=== PATIENT | female | born 1955 | race Caucasian/White ===

== ENCOUNTER 2020-12-26 12:11 | Inpatient (IN) | payer MEDICARE, BC, SELFPAY ==
[2020-12-26 12:20] VITALS: BP 153/81; PULSE 67; RESP 18; TEMP 36.7; O2SAT 99; BMI 31.8
[2020-12-26 12:47] LABS: Add Manual Diff / Slide Review NO; Basophils Absolute Auto 100 /uL (0-100); Basophils Percent Auto 0.7 % (0-2); Eosinophils Absolute Auto 100 /uL (0-450); Eosinophils Percent Auto 0.9 % (2-4); Hematocrit 39.3 % (36-46); Hemoglobin 13.1 g/dL (12.0-16.0); Lymphocytes Absolute Auto 3100 /uL (1100-4500); Lymphocytes Percent Auto 21.2 % (25-40); Mean Corpuscular HGB Conc 33.3 % (30-36); Mean Corpuscular Hemoglobin 29.1 PG (26-34); Mean Corpuscular Volume 87.4 fL (80-100); Monocytes Absolute Auto 1200 /uL (0-900); Monocytes Percent Auto 8.4 % (3-14); Neutrophils Absolute Auto 10000 /uL (1500-7000); Neutrophils Percent Auto 68.8 % (50-75); Platelet Count 189 X10^3/uL (150-400); Red Cell Distribution Width 14.1 % (11.6-14.8); White Blood Cell Count 14.6 X10^3/uL (4.5-11.0)
[2020-12-26 12:53] LABS: INR 1.3 (0.9-1.3); Prothrombin Time 14.9 SECONDS (10.1-12.7)
[2020-12-26 12:56] LABS: PTT Partial Thromboplastin Tim 31 SECONDS (26.4-36.2)
[2020-12-26 13:00] LABS: Alanine Aminotransferase 21 IU/L (<35); Albumin Globulin Ratio 1.2 (1.0-2.8); Alkaline Phosphatase 71 U/L (38-126); Aspartate Aminotransferase 23 IU/L (14-36); BUN Creatinine Ratio 18.7 (6-22); Bilirubin Total 0.4 mg/dL (0.2-1.3); Blood Urea Nitrogen 14 mg/dL (7-17); Calcium 9.7 mg/dL (8.4-10.2); Carbon Dioxide 29 mmol/L (22-32); Chloride 105 mmol/L (98-107); Estimated Glomerular Filt Rate > 60.0 mL/min (>60); Globulin 3.4 g/dL (1.7-4.1); Glucose 103 mg/dL (80-110); HEMOLYSIS < 15 (0-50); Lipase 47 U/L (23-300); Potassium 3.7 mmol/L (3.4-5.1); Sodium 142 mmol/L (137-145); Total Protein 7.4 g/dL (6.3-8.2)
[2020-12-26 14:14] VITALS: BP 103/78; PULSE 66; RESP 16; TEMP 36.9; O2SAT 98
--- NOTE | 2020-12-26 14:27 | ED.ABDPAIN ---
HPI - Abdominal Pain General Chief Complaint: Abdominal Pain Stated Complaint: states, abdominal pain,tired,head ache, feverish Time Seen by Provider: 12/26/20 14:25 Source: patient Mode of arrival: Ambulatory Limitations: no limitations History of Present Illness HPI narrative: Patient is a 65-year-old female who presents with abdominal pain ongoing for the last 2-3 days. She has had night sweats last night she said she felt cold and then sweaty. She has been having diffuse sort of abdominal pain off and on. No nausea or vomiting. She has had decrease in appetite. She has had low back pain which is nonradiating to her legs her abdomen she states her back pain is from all lying down too much. She denies any chest pain palpitations or shortness of breath. No painful or frequent urination. MD complaint: abdominal pain Onset (ago): day(s) (2) Quality: cramping Radiation: none Related Data Home Medications Medication Instructions Recorded Confirmed alprazolam 0.5 mg PO BEDTIME 12/26/20 12/26/20 bupropion HCl 150 mg PO DAILY 12/26/20 12/26/20 trazodone 50 mg PO BEDTIME 12/26/20 12/26/20 triamterene-hydrochlorothiazid 1 cap DAILY 12/26/20 12/26/20 Allergies Allergy/AdvReac Type Severity Reaction Status Date / Time No Known Drug Allergies Allergy Verified 12/26/20 12:23 Review of Systems Review of Systems ROS Unobtainable: All systems reviewed & are unremarkable except as noted in HPI and below Constitutional Constitutional: Reports body ache(s), Reports chills, Reports fever(s) and Reports poor appetite ENT Ears, Nose, Mouth, and Throat: Denies change in voice, Denies vertigo, Denies dizziness, Denies neck pain and Denies sore throat Cardiovascular Cardiovascular: Denies chest pain, Denies irregular heart rhythm, Denies lightheadedness, Denies palpitations, Denies dyspnea, Denies dyspnea on exertion and Denies orthopnea Respiratory Respiratory: Denies cough, Denies dyspnea, Denies dyspnea on exertion and Denies wheezing Gastrointestinal Gastrointestinal: Reports abdominal pain, Denies change in bowel habits, Denies diarrhea, Denies nausea and Denies vomiting Musculoskeletal Musculoskeletal: Reports as per HPI, Reports back pain, Denies deformity, Denies neck pain and Denies numbness Integumentary/Breasts Skin/Breast: Denies pruritus, Denies erythema, Denies rash and Denies wounds Neurologic Neurologic: Denies vertigo, Denies dizziness and Denies numbness Endocrine Endocrine: Denies palpitations Allergic/Immunologic Allergic/Immunologic: Denies wheezing Patient History Medical History (Updated 12/26/20 @ 16:56 by Brigette De Oliveira DO) Patient denies medical problems Social History household members: spouse Smoking Status: Never smoker Smoking Status: Never smoker alcohol intake frequency: 0-2 drinks per day Substance Use Type: does not use Exam Initial Vital Signs Initial Vital Signs: Vital Signs Temperature 98.1 F 12/26/20 12:20 Pulse Rate 67 12/26/20 12:20 Respiratory Rate 18 12/26/20 12:20 Blood Pressure 153/81 H 12/26/20 12:20 Pulse Oximetry 99 12/26/20 12:20 GENERAL: Well-appearing, well-nourished and in no acute distress. HEENT: Head atraumatic,EOMI, pupils reactive, face symmetric, moist mucous membranes CARDIOVASCULAR: Regular rate and rhythm without murmurs, rubs or gallops. RESPIRATORY: Breath sounds equal bilaterally, no wheezes rales or rhonchi. ABDOMEN: Sof, tender left upper quadrant no guarding no rebound minimal lower abdominal tenderness EXTREMITIES: Normal range of motion, no clubbing or edema. Neurovascularly intact NEUROLOGICAL: Alert and oriented x4.Normal gait and speech. SKIN: Warm, dry, no laceration, no petechiae, no rashes or lesions. Course Orders Ordered: ED Orders 12/26/20 12:24 EKG-12 Lead Stat 12/26/20 12:30 Complete Blood Count AUTO DIFF Stat Comprehensive Metabolic Panel Stat Lactate (Lactic Acid) Stat Lipase Stat Partial Thromboplastin Time Stat Prothrombin Time INR Stat 12/26/20 14:33 CT abdomen pelvis w con Stat 12/26/20 16:40 Urine Microscopic Stat 12/26/20 16:57 COVID19 - ADMIT ([employer] swab/PCR) Stat Piperacillin/Tazobactam/Dextrose (Zosyn) 3.375 gm in 50 mls @ 100 mls/hr IV Q6H MARANDA Potassium Chloride/Sodium Chloride (Ns With Kcl 20 Meq) 1,000 mls @ 150 mls/hr IV CONT MARANDA Morphine Sulfate (Morphine 2 Mg/Ml Inj) 1 mg IV Q4HR PRN PRN Reason: Pain, Moderate (4-6) Morphine Sulfate (Morphine 2 Mg/Ml Inj) 2 mg IV Q4HR PRN PRN Reason: Pain, Severe (7-10) Naloxone HCl (Naloxone 0.4 Mg/Ml Vial) 0.2 mg IV Q2MIN PRN PRN Reason: Opiate Reversal Ondansetron HCl (Ondansetron 4 Mg/2 Ml Inj) 4 mg IV Q4HR PRN PRN Reason: Nausea And Vomiting Discontinued Medications Sodium Chloride (Normal Saline 0.9%) 1,000 mls @ 1,000 mls/hr IV BOLUS ONE Stop: 12/26/20 15:32 Last Infusion: 12/26/20 17:37 Dose: 0 mls/hr Documented by: Infusion: 12/26/20 15:00 Dose: 1,000 mls/hr Documented by: Infusion: 12/26/20 14:43 Dose: 0 mls/hr Documented by: Admin: 12/26/20 14:43 Dose: 1,000 mls/hr Documented by: BEKA Piperacillin/Tazobactam/Dextrose (Zosyn) 3.375 gm in 50 mls @ 100 mls/hr IV NOW ONE Stop: 12/26/20 17:18 Last Infusion: 12/26/20 17:37 Dose: 0 mls/hr Documented by: Admin: 12/26/20 17:08 Dose: 100 mls/hr Documented by: BEKA Vital Signs Vital signs: Vital Signs - 8 hr 12/26/20 12:20 12/26/20 14:14 Temperature 98.1 F 98.4 F Pulse Rate 67 66 Respiratory Rate 18 16 Blood Pressure 153/81 H 103/78 Pulse Oximetry 99 98 MDM - Abdominal Pain Lab Data Attestation: I reviewed the patient's lab results. Result diagrams: 12/26/20 12:30 12/26/20 12:30 Labs: Lab Results 12/26/20 12/26/20 12/26/20 Range/Units 12:30 12:30 12:30 WBC 14.6 H (4.5-11.0) X10^3/uL RBC 4.50 (4.0-5.2) X10^6/uL Hgb 13.1 (12.0-16.0) g/dL Hct 39.3 (36-46) % MCV 87.4 (80-100) fL MCH 29.1 (26-34) PG MCHC 33.3 (30-36) % RDW 14.1 (11.6-14.8) % Plt Count 189 (150-400) X10^3/uL Neut % (Auto) 68.8 (50-75) % Lymph % (Auto) 21.2 L (25-40) % [place] % (Auto) 8.4 (3-14) % Eos % (Auto) 0.9 L (2-4) % Baso % (Auto) 0.7 (0-2) % Neut # (Auto) 78973 H (7427-0223) /uL Lymph # (Auto) 3100 (1382-9508) /uL [place] # (Auto) 1200 H (0-900) /uL Eos # (Auto) 100 (0-450) /uL Baso # (Auto) 100 (0-100) /uL PT 14.9 H (10.1-12.7) SECONDS INR 1.3 (0.9-1.3) APTT 31 (26.4-36.2) SECONDS Sodium 142 (137-145) mmol/L Potassium 3.7 (3.4-5.1) mmol/L Chloride 105 (98-107) mmol/L Carbon Dioxide 29 (22-32) mmol/L BUN 14 (7-17) mg/dL Creatinine 0.75 (0.52-1.04) mg/dL Estimated GFR > 60.0 (>60) mL/min BUN/Creatinine Ratio 18.7 (6-22) Glucose 103 (80-110) mg/dL Lactate (0.7-2.1) mmol/L Calcium 9.7 (8.4-10.2) mg/dL Total Bilirubin 0.4 (0.2-1.3) mg/dL AST 23 (14-36) IU/L ALT 21 (<35) IU/L Alkaline Phosphatase 71 (38-126) U/L Total Protein 7.4 (6.3-8.2) g/dL Albumin 4.0 (3.5-5.0) g/dL Globulin 3.4 (1.7-4.1) g/dL Albumin/Globulin Ratio 1.2 (1.0-2.8) Lipase 47 (23-300) U/L Urine RBC (0-5/HPF) Urine WBC (0-5/HPF) Ur Squamous Epith Cells (0-5/HPF) Urine Bacteria (None) Ur Culture Indicated? SARS-CoV-2 (PCR) (Negative) 12/26/20 12/26/20 12/26/20 Range/Units 12:30 16:40 16:57 WBC (4.5-11.0) X10^3/uL RBC (4.0-5.2) X10^6/uL Hgb (12.0-16.0) g/dL Hct (36-46) % MCV (80-100) fL MCH (26-34) PG MCHC (30-36) % RDW (11.6-14.8) % Plt Count (150-400) X10^3/uL Neut % (Auto) (50-75) % Lymph % (Auto) (25-40) % [place] % (Auto) (3-14) % Eos % (Auto) (2-4) % Baso % (Auto) (0-2) % Neut # (Auto) (7373-0823) /uL Lymph # (Auto) (3644-5676) /uL [place] # (Auto) (0-900) /uL Eos # (Auto) (0-450) /uL Baso # (Auto) (0-100) /uL PT (10.1-12.7) SECONDS INR (0.9-1.3) APTT (26.4-36.2) SECONDS Sodium (137-145) mmol/L Potassium (3.4-5.1) mmol/L Chloride (98-107) mmol/L Carbon Dioxide (22-32) mmol/L BUN (7-17) mg/dL Creatinine (0.52-1.04) mg/dL Estimated GFR (>60) mL/min BUN/Creatinine Ratio (6-22) Glucose (80-110) mg/dL Lactate 0.7 (0.7-2.1) mmol/L Calcium (8.4-10.2) mg/dL Total Bilirubin (0.2-1.3) mg/dL AST (14-36) IU/L ALT (<35) IU/L Alkaline Phosphatase (38-126) U/L Total Protein (6.3-8.2) g/dL Albumin (3.5-5.0) g/dL Globulin (1.7-4.1) g/dL Albumin/Globulin Ratio (1.0-2.8) Lipase (23-300) U/L Urine RBC 1-5/hpf (0-5/HPF) Urine WBC None seen (0-5/HPF) Ur Squamous Epith Cells 0-1 /hpf (0-5/HPF) Urine Bacteria None seen (None) Ur Culture Indicated? Cult not indicated SARS-CoV-2 (PCR) Negative (Negative) Point of care testing: Urine Dip Bedside Urine Glucose Negative Bedside Urine Bilirubin - Negative Bedside Urine Ketone + 15 Urine Specific [place] 1.005 Bedside Urine Occult Blood + Bedside Urine pH 6.0 Bedside Urine Protein - Negative Bedside Urine Urobilinogen - Negative Bedside Urine Nitrite - Negative Bedside Urine Leukocytes - Negative Esterase Imaging Data CT scan - abdomen/pelvis: Radiologist's Impression: PROCEDURE: CT ABDOMEN PELVIS W CON INDICATIONS: LUQ pain TECHNIQUE: After the administration of intravenous contrast, 5 mm thick sections acquired from the diaphragm to the symphysis. 5 mm coronal and sagittal reformats were acquired. For radiation dose reduction, the following was used: automated exposure control, adjustment of mA and/or kV according to patient size. COMPARISON: None. FINDINGS: Image quality: Excellent. ABDOMEN: Lung bases: Lung bases are clear. Heart size is normal. Solid organs: Liver is normal in size and enhancement. Gallbladder is unremarkable. Biliary system is non dilated. Pancreas enhances normally. Spleen is normal in size and enhancement. No adrenal nodules. Kidneys demonstrate normal size and enhancement, without hydronephrosis. Peritoneum and bowel: Markedly abnormal segment of transverse colon with marked wall thickening and edema. There is a prominent diverticulum within this involved segment. There is associated inflammatory change in the surrounding fat. This is in close proximity wall to a small enhancing pericolonic lymph node. Normal appendix. The colon is otherwise unremarkable, other than scattered diverticuli. Small pelvic ascites. No abscess cavity. Nodes and vessels: No retroperitoneal or mesenteric adenopathy by size criteria. Aorta and inferior vena cava are normal in size. Miscellaneous: No ventral hernias. PELVIS: Genitourinary: Bladder wall thickness is normal. Miscellaneous: No inguinal hernias or adenopathy. Large calcified uterine fibroid measuring 4.3 cm. Bones: No suspicious bony lesions. No vertebral body compression fractures. Bilateral L5 pars defects with mild anterolisthesis of L5 on S1 and significant bilateral foraminal narrowing. IMPRESSION: 1. Short segment of markedly abnormal transverse colon with marked wall thickening and wall edema, in the presence of a prominent diverticulum, with inflammatory change in the adjacent fat. Differential diagnosis includes acute diverticulitis of the transverse colon. Differential diagnosis also includes an ischemic bowel segment secondary to embolic phenomenon. Differential also includes perforated transverse colonic adenocarcinoma. 2. Scattered colonic diverticulosis. 3. Small pelvic ascites. 4. Large calcified uterine fibroid. 5. Bilateral L5 pars defects, mild anterolisthesis of L5 on S1, severe bilateral L5-S1 foraminal narrowing. Dictated by: David Fernandez M.D. on 12/26/2020 at 15:12 Approved by: David Fernandez M.D. on 12/26/2020 at 15:20 ECG Data Attestation: I personally reviewed and interpreted this ECG as follows: Prior ECG tracings: not available for review Interpretation: Normal sinus rhythm rate 65 p.r. interval 192 QRS [address] changes Q-wave noted in 1-3 AVF MDM Narrative Medical decision making narrative: Patient is quite tender in her left upper quadrant. She has leukocytosis and likely had a fever last night. CT does show inflammation questionable ischemic bowel and perforation. 1640-surgery Dr. Hobson updated on patient's symptoms and test results at this time recommends admitting to Medicine with IV antibiotics and close monitoring. 1650 Dr. ugarte updated patient's symptoms test results and agrees with admission Discharge Plan Departure Patient Disposition: Admitted As Inpatient Clinical Impression: Colitis Admit Date/Time: 12/26/20 17:01 Admit Provider: Jose Ugarte
--- NOTE | 2020-12-26 14:33 | DI.CT.S_ITS ---
PROCEDURE: CT ABDOMEN PELVIS W CON INDICATIONS: LUQ pain TECHNIQUE: After the administration of intravenous contrast, 5 mm thick sections acquired from the diaphragm to the symphysis. 5 mm coronal and sagittal reformats were acquired. For radiation dose reduction, the following was used: automated exposure control, adjustment of mA and/or kV according to patient size. COMPARISON: None. FINDINGS: Image quality: Excellent. ABDOMEN: Lung bases: Lung bases are clear. Heart size is normal. Solid organs: Liver is normal in size and enhancement. Gallbladder is unremarkable. Biliary system is non dilated. Pancreas enhances normally. Spleen is normal in size and enhancement. No adrenal nodules. Kidneys demonstrate normal size and enhancement, without hydronephrosis. Peritoneum and bowel: Markedly abnormal segment of transverse colon with marked wall thickening and edema. There is a prominent diverticulum within this involved segment. There is associated inflammatory change in the surrounding fat. This is in close proximity wall to a small enhancing pericolonic lymph node. Normal appendix. The colon is otherwise unremarkable, other than scattered diverticuli. Small pelvic ascites. No abscess cavity. Nodes and vessels: No retroperitoneal or mesenteric adenopathy by size criteria. Aorta and inferior vena cava are normal in size. Miscellaneous: No ventral hernias. PELVIS: Genitourinary: Bladder wall thickness is normal. Miscellaneous: No inguinal hernias or adenopathy. Large calcified uterine fibroid measuring 4.3 cm. Bones: No suspicious bony lesions. No vertebral body compression fractures. Bilateral L5 pars defects with mild anterolisthesis of L5 on S1 and significant bilateral foraminal narrowing. IMPRESSION: 1. Short segment of markedly abnormal transverse colon with marked wall thickening and wall edema, in the presence of a prominent diverticulum, with inflammatory change in the adjacent fat. Differential diagnosis includes acute diverticulitis of the transverse colon. Differential diagnosis also includes an ischemic bowel segment secondary to embolic phenomenon. Differential also includes perforated transverse colonic adenocarcinoma. 2. Scattered colonic diverticulosis. 3. Small pelvic ascites. 4. Large calcified uterine fibroid. 5. Bilateral L5 pars defects, mild anterolisthesis of L5 on S1, severe bilateral L5-S1 foraminal narrowing. Dictated by: David Fernandez M.D. on 12/26/2020 at 15:12 Approved by: David Fernandez M.D. on 12/26/2020 at 15:20
[2020-12-26] MEDS: SODIUM CHLORIDE 0.9% 1,000 ML 1000 ML IV (14:43)
[2020-12-26 16:59] LABS: Bacteria Urine None Seen; WBC Urine None Seen (0-5/HPF)
[2020-12-26] MEDS: PIPERACILLIN-TAZO 3.375 GM/50 ML FROZ.PIGGY IV ×2 (17:08→22:39)
[2020-12-26 17:09] LABS: Lactate (Lactic Acid) 0.7 mmol/L (0.7-2.1)
[2020-12-26 17:11] VITALS: BP 161/85; PULSE 74; O2SAT 99
[2020-12-26 17:20] LABS: Culture Indicated Urine Cult Not Indicated; RBC Urine 1-5/HPF (0-5/HPF); Squamous Epithelial Cell Urine 0-1 /HPF (0-5/HPF)
[2020-12-26 17:47] VITALS: BMI 31.8
--- NOTE | 2020-12-26 17:52 | PC.NURSE ---
Addendum entered by Mellissa Bryan R.N. 12/26/20 21:04: Pt reports no change in abdominal pain. States is comfortable when lying still in bed, but movement, coughing, increases pain to left mid and lower abdominal quadrants. Remains NPO except oral swabs as per JENNIFER Javier. Addendum entered by Mellissa Bryan R.N. 12/26/20 20:42: Hospitalist JENNIFER Javier has seen patient. Addendum entered by Mellissa Bryan R.N. 12/26/20 18:44: Up to bathroom to void. Independent and safe on feet. BL calf scd's placed as ordered with rationale provided to pt. Offered pt morphine for pain and pt adamantly declines, Not unless I have surgery. Addendum entered by Mellissa Bryan R.N. 12/26/20 18:07: Pt is able to turn self in bed. Admits to increase in left-sided abdominal pain with turning to left side and reports no increase in pain with turning to right side. Continues to rate left-sided abdominal pain 4/10, dull in nature when lying on back which pt reports prefers this position. Original Note: Pt to room 222 from [facility] awake, alert, conversant. Reports left mid and lower quadrant abdominal pain 4/10 dull in nature. Pt denies nausea. Spouse accompanies pt to room. Awaiting covid result and pt with mask in place. Float RNSelina, completing admission assessment. Pt assisted to change into hospital gown and socks. Raised knees with pillow and with bed controls to assist with managing abdominal pain.
[2020-12-26 18:06] VITALS: BP 135/94; PULSE 76; RESP 18; TEMP 36.7; O2SAT 96
[2020-12-26 18:12] LABS: COVID19 - ADMIT (NP swab/PCR) Negative (Negative)
[2020-12-26 18:29] VITALS: O2SAT 96
[2020-12-26] MEDS: KCL 20 MEQ IN NS 1,000 ML 150 MEQ IV (18:50)
--- NOTE | 2020-12-26 20:00 | PM.HP.1 ---
History of Present Illness History of Present Illness Date Patient Seen: 12/26/20 Time Patient Seen: 19:30 Chief complaint: states, abdominal pain,tired,head ache, feverish Narrative: Amara Cardenas is a 65 y.o. resident of [place] with hypertension and depression presented to [facility] with a 3 day history of abdominal pain in the left lower quadrant, subjective fever, fatigue, headaches and back aches. She and her had been driving the [employer] and decided to return early to home to be closer to medical care. She states that her last bowel movement was yesterday but she has been feeling bloated after eating for the last 2 days. She denies any nausea or vomiting. She denies cough, shortness of breath, chest pain, dysuria, or diarrhea. She has a surgical history of 2 C-sections and a right knee replacement. CT ordered by the ED reported 1. Short segment of markedly abnormal transverse colon with marked wall thickening and wall edema, in the presence of a prominent diverticulum, with inflammatory change in the adjacent fat. Differential diagnosis includes acute diverticulitis of the transverse colon. Differential diagnosis also includes an ischemic bowel segment secondary to embolic phenomenon. Differential also includes perforated transverse colonic adenocarcinoma. 2. Scattered colonic diverticulosis. 3. Small pelvic ascites. 4. Large calcified uterine fibroid. Patient is afebrile blood pressure 135/94, heart rate 76, respiratory rate 18, oxygen saturation of 96% on room air she weighs 82.5 kg with a BMI of 31.8. She has a mildly elevated white count of 14.6 with a left shift, the rest of her CBC is within normal limits chemistries are within normal limits, urinalysis is negative and COVID-19 PCR is negative. Patient History Medical History Depression Essential hypertension Surgical History H/O section History of total right knee replacement (TKR) Family & Social History Family History (Updated 12/26/20 @ 20:32 by JENNIFER Diego) Mother Diverticular disease Father CVA (cerebral vascular accident) C. difficile colitis Brother Hyperlipidemia Social History: household members spouse Prior Living Arrangements House Safety & Behavioral: Feels Safe in Current Yes Environment Been Physically Hurt or No Threatened By a Person Suicidal Ideation Description None Tobacco & Substance use: Smoking Status Never smoker alcohol intake frequency a few times a month Substance Use Type does not use Meds Home Medications and Allergies Home Medications Medication Instructions Recorded Confirmed Type alprazolam 0.5 mg PO BEDTIME 12/26/20 12/26/20 History bupropion HCl 150 mg PO DAILY 12/26/20 12/26/20 History trazodone 50 mg PO BEDTIME 12/26/20 12/26/20 History triamterene-hydrochlorothiazid 1 cap DAILY 12/26/20 12/26/20 History Allergies Allergy/AdvReac Type Severity Reaction Status Date / Time No Known Drug Allergies Allergy Verified 12/26/20 12:23 Review of Systems Review of Systems ROS: Yes All systems reviewed with the patient and are negative except as otherwise documented Exam Vital Signs (past 8 hours): - 12/26/20 12:20 12/26/20 14:14 12/26/20 17:11 Temperature 98.1 F 98.4 F Pulse Rate 67 66 74 Respiratory Rate 18 16 Blood Pressure 153/81 H 103/78 161/85 H Pulse Oximetry 99 98 99 12/26/20 18:06 Temperature 98.0 F Pulse Rate 76 Respiratory Rate 18 Blood Pressure 135/94 H Pulse Oximetry 96 Oxygen Delivery Method Room Air Narrative Exam Narrative: Gen: Alert, oriented, well-developed 65 y.o. female, NAD HEENT: normocephalic, atraumatic, conjunctiva clear, sclera non-icteric, oral mucosa pink and moist Neck: supple, full ROM, no JVD, trachea is midline Resp: Lungs CTA, non-labored breathing CV: RRR, no murmur or rubs Abd: soft, generalized tenderness on the left upper and lower quadrant with hypoactive bowel tones, right upper and lower quadrant have hyperactive bowel tones with high-pitched sounds, nontender Skin: no lesions or rashes, dry and intact Neuro: Alert and oriented X 4 w/no focal deficits. Speech clear and coherent. Extremities: moves all 4 extremities, is ambulatory, negative Mino?s sign Psyche: normal mood and affect. Objective Labs Result Diagrams: 12/26/20 12:30 12/26/20 12:30 Labs: Laboratory Results - last 24 hr 12/26/20 12/26/20 12/26/20 12:30 12:30 12:30 WBC 14.6 H RBC 4.50 Hgb 13.1 Hct 39.3 MCV 87.4 MCH 29.1 MCHC 33.3 RDW 14.1 Plt Count 189 Neut % (Auto) 68.8 Lymph % (Auto) 21.2 L [place] % (Auto) 8.4 Eos % (Auto) 0.9 L Baso % (Auto) 0.7 Neut # (Auto) 50542 H Lymph # (Auto) 3100 [place] # (Auto) 1200 H Eos # (Auto) 100 Baso # (Auto) 100 PT 14.9 H INR 1.3 APTT 31 Sodium 142 Potassium 3.7 Chloride 105 Carbon Dioxide 29 BUN 14 Creatinine 0.75 Estimated GFR > 60.0 BUN/Creatinine Ratio 18.7 Glucose 103 Lactate Calcium 9.7 Total Bilirubin 0.4 AST 23 ALT 21 Alkaline Phosphatase 71 Total Protein 7.4 Albumin 4.0 Globulin 3.4 Albumin/Globulin Ratio 1.2 Lipase 47 Urine RBC Urine WBC Ur Squamous Epith Cells Urine Bacteria Ur Culture Indicated? SARS-CoV-2 (PCR) 12/26/20 12/26/20 12/26/20 12:30 16:40 16:57 WBC RBC Hgb Hct MCV MCH MCHC RDW Plt Count Neut % (Auto) Lymph % (Auto) [place] % (Auto) Eos % (Auto) Baso % (Auto) Neut # (Auto) Lymph # (Auto) [place] # (Auto) Eos # (Auto) Baso # (Auto) PT INR APTT Sodium Potassium Chloride Carbon Dioxide BUN Creatinine Estimated GFR BUN/Creatinine Ratio Glucose Lactate 0.7 Calcium Total Bilirubin AST ALT Alkaline Phosphatase Total Protein Albumin Globulin Albumin/Globulin Ratio Lipase Urine RBC 1-5/hpf Urine WBC None seen Ur Squamous Epith Cells 0-1 /hpf Urine Bacteria None seen Ur Culture Indicated? Cult not indicated SARS-CoV-2 (PCR) Negative Assessment & Plan Assessment & Plan narrative: Rober Cardenas is admitted to the inpatient service for further workup, treatment, and management of a suspected diverticular flare up and to rule out a bowel perforation versus colonic mass. Suspected diverticular colitis, acute, present on admission -She was initiated on IV pipercillin and will be continued -Dr. Hobson, General Surgery to consult and follow, will see in the am. -NPO tonight, may have ice chips -Lactate and procalcitonin pending Essential hypertension, chronic, currently WNL -She normally takes triamterine/HCTZ 37.5/25 mg, but has not been taking Depression, chronic -States has not been taking buproprion 150 mg daily, states she does not need to take VTE prophylaxis: Wells risk score: 0 Bilateral SCDs Consults: Dr. Hobson, General Surgery consult and involvement is appreciated. Patient is admitted under inpatient status with expected length of stay greater than 2 midnights due to severity of presenting symptoms, risk of adverse event, and complexity of treatment plan. FEN: IV NS w/Kcl 20 mEq at 100 ml/hour, NPO, BMP and magnesium in the am. Dispo: Unknown at this time Code Status: Full Code as discussed with patient and her who is her DPOA Scores Wells' Criteria for PE Clinical signs and symptoms of DVT: No PE is #1 Dx or equally likely: No Heart rate > 100: No Immobilization at least 3 days or surg in previous 4 weeks: No History of PE or DVT: No Hemoptysis: No Malignancy w/Treatment within 6 months or palliative: No Wells' PE Score total: 0 Quality VTE Deep Vein Thrombosis/Pulmonary Embolism Present on Admission: No MIPS - Admit I confirm the patient?s Advance Care Plan is present, Code status is documented, Surrogate decision maker is in patient?s record [If Yes, STOP here]: Yes
[2020-12-26 20:53] LABS: Lactate (Lactic Acid) 0.8 mmol/L (0.7-2.1)
[2020-12-26 21:00] LABS: Procalcitonin 0.14 ng/mL (<0.5)
[2020-12-26 23:00] VITALS: BP 139/83; PULSE 72; RESP 18; TEMP 36.8; O2SAT 94
[2020-12-27] VITALS (7 sets, daily range): BP systolic 120–138; BP diastolic 69–80; PULSE 62–77; RESP 15–18; TEMP 36.3–36.8; O2SAT 94–98
[2020-12-27] MEDS: KCL 20 MEQ IN NS 1,000 ML 100 MEQ IV (04:05)
[2020-12-27] MEDS: PIPERACILLIN-TAZO 3.375 GM/50 ML FROZ.PIGGY IV (04:52)
[2020-12-27 05:58] LABS: Add Manual Diff / Slide Review NO; Basophils Absolute Auto 100 /uL (0-100); Basophils Percent Auto 0.6 % (0-2); Eosinophils Absolute Auto 200 /uL (0-450); Eosinophils Percent Auto 1.9 % (2-4); Hematocrit 34.9 % (36-46); Hemoglobin 11.6 g/dL (12.0-16.0); Lymphocytes Absolute Auto 3200 /uL (1100-4500); Lymphocytes Percent Auto 30.9 % (25-40); Mean Corpuscular HGB Conc 33.3 % (30-36); Mean Corpuscular Hemoglobin 29.5 PG (26-34); Mean Corpuscular Volume 88.7 fL (80-100); Monocytes Absolute Auto 800 /uL (0-900); Monocytes Percent Auto 8.2 % (3-14); Neutrophils Absolute Auto 6100 /uL (1500-7000); Neutrophils Percent Auto 58.4 % (50-75); Platelet Count 184 X10^3/uL (150-400); Red Blood Cell Count 3.94 X10^6/uL (4.0-5.2); Red Cell Distribution Width 14.2 % (11.6-14.8); White Blood Cell Count 10.4 X10^3/uL (4.5-11.0)
[2020-12-27 06:02] LABS: BUN Creatinine Ratio 18.1 (6-22); Blood Urea Nitrogen 13 mg/dL (7-17); Carbon Dioxide 27 mmol/L (22-32); Chloride 107 mmol/L (98-107); Estimated Glomerular Filt Rate > 60.0 mL/min (>60); Glucose 89 mg/dL (80-110); HEMOLYSIS < 15 (0-50); Potassium 4.2 mmol/L (3.4-5.1); Sodium 141 mmol/L (137-145)
--- NOTE | 2020-12-27 07:02 | PC.NURSE ---
Did not C/O abdominal pain & nausea all night. Will cont. POC & monitor.
--- NOTE | 2020-12-27 09:52 | PM.CN ---
History of Present Illness Consult details Date Patient Seen: 12/27/20 Time Patient Seen: 09:56 Chief complaint: states, abdominal pain,tired,head ache, feverish Reason for consult: abnormal transverse colon on CT Requesting provider: Jose Ugarte Narrative: 2-3 days abdominal discomfort in LLQ. worsening to a continuous pain and sharp pain with activity. No emesis or diarrhea, no prior episodes. Last colonoscopy was many years ago. Recent occult blood test was negative. no weight loss or chronic GI symptoms. Meds Home Medications and Allergies Home Medications Medication Instructions Recorded Confirmed Type alprazolam 0.5 mg PO BEDTIME 12/26/20 12/26/20 History bupropion HCl 150 mg PO DAILY 12/26/20 12/26/20 History trazodone 50 mg PO BEDTIME 12/26/20 12/26/20 History triamterene-hydrochlorothiazid 1 cap DAILY 12/26/20 12/26/20 History Allergies Allergy/AdvReac Type Severity Reaction Status Date / Time No Known Drug Allergies Allergy Verified 12/26/20 12:23 Review of Systems Review of Systems Narrative: abdominal pain, no diarrhea, no blood in stool, no cough ROS: Yes All systems reviewed with the patient and are negative except as otherwise documented Exam Vital Signs (past 8 hours): - 12/27/20 05:00 12/27/20 09:36 Temperature 97.3 F L 98 F Pulse Rate 68 77 Respiratory Rate 16 16 Blood Pressure 124/77 120/70 Pulse Oximetry 98 96 Oxygen Delivery Method Room Air Oxygen Flow Rate 0 Const General: cooperative and healthy appearing [facility] Head: normal to inspection, normocephalic and atraumatic Eyes Conjunctivae: conjunctivae normal Sclera: sclerae normal Neck Neck: trachea midline Chest Chest: normal inspection of the chest Resp Effort & Inspection: normal respiratory effort and able to speak in complete sentences Cardio Rate: regular rate Rhythm: regular rhythm GI Palpation: soft and tender (left upper quadrant tender to palpation) Skin General: no rashes or lesions noted and elasticity normal Neuro General: patient alert, patient awake and patient oriented x3 Cognition: normal cognition Speech: speech normal Extrem General: full ROM Psych Appearance: grossly normal and well kempt Judgment: judgment good Objective Labs Result Diagrams: 12/27/20 05:15 12/27/20 05:15 Labs: Laboratory Results - last 24 hr 12/26/20 12/26/20 12/26/20 12:30 12:30 12:30 WBC 14.6 H RBC 4.50 Hgb 13.1 Hct 39.3 MCV 87.4 MCH 29.1 MCHC 33.3 RDW 14.1 Plt Count 189 Neut % (Auto) 68.8 Lymph % (Auto) 21.2 L Spencer % (Auto) 8.4 Eos % (Auto) 0.9 L Baso % (Auto) 0.7 Neut # (Auto) 27833 H Lymph # (Auto) 3100 Spencer # (Auto) 1200 H Eos # (Auto) 100 Baso # (Auto) 100 PT 14.9 H INR 1.3 APTT 31 Sodium 142 Potassium 3.7 Chloride 105 Carbon Dioxide 29 BUN 14 Creatinine 0.75 Estimated GFR > 60.0 BUN/Creatinine Ratio 18.7 Glucose 103 Lactate Calcium 9.7 Total Bilirubin 0.4 AST 23 ALT 21 Alkaline Phosphatase 71 Total Protein 7.4 Albumin 4.0 Globulin 3.4 Albumin/Globulin Ratio 1.2 Lipase 47 Procalcitonin Urine RBC Urine WBC Ur Squamous Epith Cells Urine Bacteria Ur Culture Indicated? SARS-CoV-2 (PCR) 12/26/20 12/26/20 12/26/20 12:30 12:30 16:40 WBC RBC Hgb Hct MCV MCH MCHC RDW Plt Count Neut % (Auto) Lymph % (Auto) Spencer % (Auto) Eos % (Auto) Baso % (Auto) Neut # (Auto) Lymph # (Auto) Spencer # (Auto) Eos # (Auto) Baso # (Auto) PT INR APTT Sodium Potassium Chloride Carbon Dioxide BUN Creatinine Estimated GFR BUN/Creatinine Ratio Glucose Lactate 0.7 Calcium Total Bilirubin AST ALT Alkaline Phosphatase Total Protein Albumin Globulin Albumin/Globulin Ratio Lipase Procalcitonin 0.14 Urine RBC 1-5/hpf Urine WBC None seen Ur Squamous Epith Cells 0-1 /hpf Urine Bacteria None seen Ur Culture Indicated? Cult not indicated SARS-CoV-2 (PCR) 12/26/20 12/26/20 12/27/20 16:57 20:35 05:15 WBC 10.4 RBC 3.94 L Hgb 11.6 L Hct 34.9 L MCV 88.7 MCH 29.5 MCHC 33.3 RDW 14.2 Plt Count 184 Neut % (Auto) 58.4 Lymph % (Auto) 30.9 Spencer % (Auto) 8.2 Eos % (Auto) 1.9 L Baso % (Auto) 0.6 Neut # (Auto) 6100 Lymph # (Auto) 3200 Spencer # (Auto) 800 Eos # (Auto) 200 Baso # (Auto) 100 PT INR APTT Sodium Potassium Chloride Carbon Dioxide BUN Creatinine Estimated GFR BUN/Creatinine Ratio Glucose Lactate 0.8 Calcium Total Bilirubin AST ALT Alkaline Phosphatase Total Protein Albumin Globulin Albumin/Globulin Ratio Lipase Procalcitonin Urine RBC Urine WBC Ur Squamous Epith Cells Urine Bacteria Ur Culture Indicated? SARS-CoV-2 (PCR) Negative 12/27/20 05:15 WBC RBC Hgb Hct MCV MCH MCHC RDW Plt Count Neut % (Auto) Lymph % (Auto) Spencer % (Auto) Eos % (Auto) Baso % (Auto) Neut # (Auto) Lymph # (Auto) Spencer # (Auto) Eos # (Auto) Baso # (Auto) PT INR APTT Sodium 141 Potassium 4.2 Chloride 107 Carbon Dioxide 27 BUN 13 Creatinine 0.72 Estimated GFR > 60.0 BUN/Creatinine Ratio 18.1 Glucose 89 Lactate Calcium 9.0 Total Bilirubin AST ALT Alkaline Phosphatase Total Protein Albumin Globulin Albumin/Globulin Ratio Lipase Procalcitonin Urine RBC Urine WBC Ur Squamous Epith Cells Urine Bacteria Ur Culture Indicated? SARS-CoV-2 (PCR) Assessment & Plan Assessment & Plan narrative: I reviewed CT scan and in correlation with clinical exam she has distal transverse diverticulitis already responding to IV antibiotics both clinical and in decreased WBC. Recommend: regular diet. Convert to PO Augmentin and Flagyl for 5 day course. Possible discharge tomorrow if continues to improve. Needs elective colonoscopy in 6-8 weeks that can be done through [facility]. no restrictions on diet or activity.
--- NOTE | 2020-12-27 10:39 | CM.DANOTE ---
DCP: Case received, EMR reviewed and met with patient. , Sylvester, was at bedside. Introduced self and role. Was able to obtain information from patient regarding her baseline activity status prior to hospitalization. DCP assessment completed with information currently available. Patient is a 65 year old female who admitted yesterday evening to the care of the hospitalist team. PCP: JENNIFER Odell. Payer: confirmed: Medicare/[employer]. Patient came to the hospital via private vehicle secondary to having abdominal pain, bloating, as well as having a fever. Patient holds current diagnosis of acute diverticulitis/suspected diverticulitis colitis. Patient is currently getting IV antibiotics. She has history of depression and HTN. Met with patient during team rounds, and one on one. She is pleasant. Her and her reside on [place]. They have lived up here approximately a year, as they are originally from [facility]. She is independent at her baseline and drives. Patient is currently starting on a clear liquid diet, and she may be upgraded at dinner if she can tolerate. P: DCP to continue to follow. Plan is for home when stable and able to tolerate foods. Most likely should be ready by tomorrow. Sylvia Abdi RN/Silo Tender
--- NOTE | 2020-12-27 11:08 | PM.PN.1 ---
Subjective Subjective Date Patient Seen: 12/27/20 Time Patient Seen: 11:22 Interval history: This is a 65-year-old female admitted with probable diverticulitis. She has improved with antibiotic therapy, and was hungry this morning. She was seen by surgery, home recommended advancement of her diet and continued antibiotics for presumed diverticulitis and follow-up in the surgical clinic. She denies any fevers, chills, chest pain, shortness of breath, lower extremity edema today. She denies any nausea or vomiting and is somewhat hungry. Exam Vital Signs (past 8 hours): - 12/27/20 05:00 12/27/20 09:36 Temperature 97.3 F L 98 F Pulse Rate 68 77 Respiratory Rate 16 16 Blood Pressure 124/77 120/70 Pulse Oximetry 98 96 Oxygen Delivery Method Room Air Oxygen Flow Rate 0 Narrative Exam Narrative: Gen: Alert, oriented, well-developed 65 y.o. female, NAD HEENT: normocephalic, atraumatic, conjunctiva clear, sclera non-icteric, oral mucosa pink and moist Neck: supple, full ROM, no JVD, trachea is midline Resp: Lungs CTA, non-labored breathing CV: RRR, no murmur or rubs Abd: soft, non-tender, non-distended. Skin: no lesions or rashes, dry and intact Neuro: Alert and oriented X 4 w/no focal deficits. Speech clear and coherent. Extremities: moves all 4 extremities, is ambulatory, negative Mino?s sign Psyche: normal mood and affect. Objective Labs Result Diagrams: 12/27/20 05:15 12/27/20 05:15 Labs: Laboratory Results - last 24 hr 12/26/20 12/26/20 12/26/20 12:30 12:30 12:30 WBC 14.6 H RBC 4.50 Hgb 13.1 Hct 39.3 MCV 87.4 MCH 29.1 MCHC 33.3 RDW 14.1 Plt Count 189 Neut % (Auto) 68.8 Lymph % (Auto) 21.2 L [place] % (Auto) 8.4 Eos % (Auto) 0.9 L Baso % (Auto) 0.7 Neut # (Auto) 30019 H Lymph # (Auto) 3100 [place] # (Auto) 1200 H Eos # (Auto) 100 Baso # (Auto) 100 PT 14.9 H INR 1.3 APTT 31 Sodium 142 Potassium 3.7 Chloride 105 Carbon Dioxide 29 BUN 14 Creatinine 0.75 Estimated GFR > 60.0 BUN/Creatinine Ratio 18.7 Glucose 103 Lactate Calcium 9.7 Total Bilirubin 0.4 AST 23 ALT 21 Alkaline Phosphatase 71 Total Protein 7.4 Albumin 4.0 Globulin 3.4 Albumin/Globulin Ratio 1.2 Lipase 47 Procalcitonin Urine RBC Urine WBC Ur Squamous Epith Cells Urine Bacteria Ur Culture Indicated? SARS-CoV-2 (PCR) 12/26/20 12/26/20 12/26/20 12:30 12:30 16:40 WBC RBC Hgb Hct MCV MCH MCHC RDW Plt Count Neut % (Auto) Lymph % (Auto) [place] % (Auto) Eos % (Auto) Baso % (Auto) Neut # (Auto) Lymph # (Auto) [place] # (Auto) Eos # (Auto) Baso # (Auto) PT INR APTT Sodium Potassium Chloride Carbon Dioxide BUN Creatinine Estimated GFR BUN/Creatinine Ratio Glucose Lactate 0.7 Calcium Total Bilirubin AST ALT Alkaline Phosphatase Total Protein Albumin Globulin Albumin/Globulin Ratio Lipase Procalcitonin 0.14 Urine RBC 1-5/hpf Urine WBC None seen Ur Squamous Epith Cells 0-1 /hpf Urine Bacteria None seen Ur Culture Indicated? Cult not indicated SARS-CoV-2 (PCR) 12/26/20 12/26/20 12/27/20 16:57 20:35 05:15 WBC 10.4 RBC 3.94 L Hgb 11.6 L Hct 34.9 L MCV 88.7 MCH 29.5 MCHC 33.3 RDW 14.2 Plt Count 184 Neut % (Auto) 58.4 Lymph % (Auto) 30.9 [place] % (Auto) 8.2 Eos % (Auto) 1.9 L Baso % (Auto) 0.6 Neut # (Auto) 6100 Lymph # (Auto) 3200 [place] # (Auto) 800 Eos # (Auto) 200 Baso # (Auto) 100 PT INR APTT Sodium Potassium Chloride Carbon Dioxide BUN Creatinine Estimated GFR BUN/Creatinine Ratio Glucose Lactate 0.8 Calcium Total Bilirubin AST ALT Alkaline Phosphatase Total Protein Albumin Globulin Albumin/Globulin Ratio Lipase Procalcitonin Urine RBC Urine WBC Ur Squamous Epith Cells Urine Bacteria Ur Culture Indicated? SARS-CoV-2 (PCR) Negative 12/27/20 05:15 WBC RBC Hgb Hct MCV MCH MCHC RDW Plt Count Neut % (Auto) Lymph % (Auto) [place] % (Auto) Eos % (Auto) Baso % (Auto) Neut # (Auto) Lymph # (Auto) [place] # (Auto) Eos # (Auto) Baso # (Auto) PT INR APTT Sodium 141 Potassium 4.2 Chloride 107 Carbon Dioxide 27 BUN 13 Creatinine 0.72 Estimated GFR > 60.0 BUN/Creatinine Ratio 18.1 Glucose 89 Lactate Calcium 9.0 Total Bilirubin AST ALT Alkaline Phosphatase Total Protein Albumin Globulin Albumin/Globulin Ratio Lipase Procalcitonin Urine RBC Urine WBC Ur Squamous Epith Cells Urine Bacteria Ur Culture Indicated? SARS-CoV-2 (PCR) COUNT INCLUDES THE [facility] Medical History Depression Essential hypertension Surgical History H/O section History of total right knee replacement (TKR) Family History Mother Diverticular disease Father CVA (cerebral vascular accident) C. difficile colitis Brother Hyperlipidemia Social History household members: spouse Smoking Status: Never smoker Assessment & Plan Assessment & Plan narrative: Rober Cardenas is a 65-year-old female admitted with suspected diverticulitis, currently improving with antibiotic therapy. 1. Diverticulitis, acute, present on admission -She was initiated on zosyn, seen by surgery today whom suspects diverticulitis as opposed to malignancy or other etiology at this time. Improved with antibiotic therapy. -Dr. Hobson, General Surgery consulted, appreciate her time and recommendations. -Advance diet as tolerated, okay to switch to oral antibiotics. -If tolerating a diet, no worsening pain, can likely discharge tomorrow. Essential hypertension, chronic, currently WNL -She normally takes triamterine/HCTZ 37.5/25 mg, but has not been taking. Currently normotensive and will continue to hold. Depression, chronic -States has not been taking buproprion 150 mg daily, states she does not need to take. Will continue without. No current symptoms of withdrawal. Consults: Dr. Hobson, General Surgery consult and involvement is appreciated. Dispo: admitted inpatient, probable discharge tomorrow if tolerating adequate oral intake Code Status: Full Code as discussed with patient and her who is her DPOA Quality VTE Deep Vein Thrombosis/Pulmonary Embolism Present on Admission: No
[2020-12-27] MEDS: AMOXICILLIN/CLAV 875/125 MG 1 TAB PO ×2 (11:58→20:49)
--- NOTE | 2020-12-27 14:55 | PC.NURSE ---
shift summary: Patient tolerating clears and soft diet, ate about 25% of lunch. No n/v, endorses mild discomfort to abdomen to Left quadrant upon palpation. Denies shortness of breath. UP ad sanjuanita in room without difficulty. Currently resting in bed, call light within reach. Anticipating going home tomorrow with her if stable.
--- NOTE | 2020-12-27 15:37 | PC.NURSE ---
Addendum entered by Mellissa Bryan R.N. 12/27/20 22:25: Snack provided as requested to take with hs med. Moves self independently in bed. No concerns or complaints verbalized. Addendum entered by Mellissa Bryan R.N. 12/27/20 19:28: Pt admits to some left mid and lower abdominal pain following eating. Is masked and up in hallway ambulating. Desires no medications to treat, but accepts warm blanket which pt placed to abdomen. Returned to bed. Addendum entered by Mellissa Bryan R.N. 12/27/20 18:51: Reports headache improved and no issues with taking evening meal. Original Note: Pt awake and alert resting quietly in bed. C/o significant fatigue as well as headache 11/21. States abdominal pain absent currently while at rest. Denies nausea. Anticipates discharge to home in a.m. Requested tylenol order from Dr. Martel as pt agrees to accept this med to treat headache. Independent in room to toilet. Declines to wear scd's. Encouraged ankle waving and calf pumping while in bed. Pt requests iv be taken out and this quality analyst/technical writer explained importance of keeping iv in during hospital stay. Pt accepts this explanation.
[2020-12-27] MEDS: ACETAMINOPHEN 325 MG TABLET 975 MG PO (15:58)
[2020-12-27] MEDS: SODIUM CHLORIDE 0.9% FLUSH 10 ML IV (20:49)
[2020-12-28] VITALS: BP 128/73; PULSE 61; RESP 16; TEMP 36.7; O2SAT 96
[2020-12-28 00:50] VITALS: O2SAT 96
[2020-12-28 04:49] VITALS: O2SAT 96
[2020-12-28 05:35] VITALS: BP 152/87; PULSE 57; RESP 18; TEMP 36.3; O2SAT 96
[2020-12-28 07:30] VITALS: O2SAT 96
--- NOTE | 2020-12-28 08:15 | P.DS_ITS ---
History of Present Illness History of Present Illness Date Patient Seen: 12/28/20 Time Patient Seen: 08:16 Chief complaint: states, abdominal pain,tired,head ache, feverish Narrative: JENNIFER Schwartz: Amara Cardenas is a 65 y.o. resident of [place] with hypertension and depression presented to [facility] with a 3 day history of abdominal pain in the left lower quadrant, subjective fever, fatigue, headaches and back aches. She and her had been driving the [place] and decided to return early to home to be closer to medical care. She states that her last bowel movement was yesterday but she has been feeling bloated after eating for the last 2 days. She denies any nausea or vomiting. She denies cough, shortness of breath, chest pain, dysuria, or diarrhea. She has a surgical history of 2 C-sections and a right knee replacement. CT ordered by the ED reported 1. Short segment of markedly abnormal transverse colon with marked wall thickening and wall edema, in the presence of a prominent diverticulum, with inflammatory change in the adjacent fat. Differential diagnosis includes acute diverticulitis of the transverse colon. Differential diagnosis also includes an ischemic bowel segmen t secondary to embolic phenomenon. Differential also includes perforated transverse colonic adenocarcinoma. 2. Scattered colonic diverticulosis. 3. Small pelvic ascites. 4. Large calcified uterine fibroid. Patient is afebrile blood pressure 135/94, heart rate 76, respiratory rate 18, oxygen saturation of 96% on room air she weighs 82.5 kg with a BMI of 31.8. She has a mildly elevated white count of 14.6 with a left shift, the rest of her CBC is within normal limits chemistries are within normal limits, urinalysis is negative and COVID-19 PCR is negative. Discharge Providers Provider Date of admission: 12/26/20 17:01 Discharge Date: 12/28/20 Consults: 12/26/20 18:32 Consult to Physician Routine Comment: Consulting Provider: Raisa Hobson Reason for consultation: acute colitis Has provider been notified: Yes Discharge provider: Sky Martel DO Summary Hospital Course Discharge Diagnosis: Please see hospital course by problem list noted below. Hospital Course: Rober Cardenas is a 65-year-old female admitted with suspected diverticulitis, Improved with antibiotic therapy. Patient was tolerating a diet and improved pain prior to discharge. 1. Diverticulitis, acute, present on admission -She was initiated on zosyn, seen by surgery whom suspects diverticulitis as opposed to malignancy or other etiology at this time. Improved with antibiotic therapy. -Dr. Hobson, General Surgery consulted, appreciate her time and recommendations. -Her diet was advanced, she was able to tolerate a low residue diet, changed to oral antibiotics, and discharged home to complete treatment course. -Follow up in 6-8 weeks with general surgery clinic for colonoscopy. 2. Essential hypertension, chronic, currently WNL -She normally takes triamterine/HCTZ 37.5/25 mg, but has not been taking. She was normotensive without this medication. 3. Depression, chronic -States has not been taking buproprion 150 mg daily, states she does not need to take. Will continue without. No current symptoms of withdrawal. Code Status: Full Code as discussed with patient and her who is her DPOA Exam Vital Signs (past 8 hours): - 12/28/20 00:50 12/28/20 04:49 12/28/20 05:35 Temperature 97.4 F L Pulse Rate 57 L Respiratory Rate 18 Blood Pressure 152/87 H Pulse Oximetry 96 96 96 Oxygen Delivery Method Room Air Oxygen Flow Rate 0 Narrative Exam Narrative: Gen: Alert, oriented, well-developed 65 y.o. female, NAD HEENT: normocephalic, atraumatic, conjunctiva clear, sclera non-icteric, oral mucosa pink and moist Neck: supple, full ROM, no JVD, trachea is midline Resp: Lungs CTA, non-labored breathing CV: RRR, no murmur or rubs Abd: soft, non-tender, non-distended. Skin: no lesions or rashes, dry and intact Neuro: Alert and oriented X 4 w/no focal deficits. Speech clear and coherent. Extremities: moves all 4 extremities, is ambulatory, negative Mino?s sign Psyche: normal mood and affect. Objective Labs Result Diagrams: 12/27/20 05:15 12/27/20 05:15 [facility] Medical History Depression Essential hypertension Surgical History H/O section History of total right knee replacement (TKR) Family History Mother Diverticular disease Father CVA (cerebral vascular accident) C. difficile colitis Brother Hyperlipidemia Social History household members: spouse Smoking Status: Never smoker Discharge Plan Discharge Plan Patient Disposition: Home Provider Discharge Comment: You were admitted to the hospital for diverticulitis. You improved with antibiotics. If you have more than 3 episodes of diarrhea in a day, please follow up with your clinic to perform testing for C.difficile as it will be difficult to tell if this is from the antibiotics, c. difficile, or continued diverticulitis. Discharge orders & Medications Prescriptions: New amoxicillin-pot clavulanate 875-125 mg tablet 1 tab PO BID 7 Days Qty: 14 RF: 0 Continued alprazolam 0.5 mg tablet 0.5 mg PO BEDTIME RF: 0 trazodone 50 mg tablet 50 mg PO BEDTIME RF: 0 Discontinued bupropion HCl 150 mg tablet sustained-release 12 hr 150 mg PO DAILY RF: 0 triamterene-hydrochlorothiazid 37.5-25 mg capsule 1 cap DAILY RF: 0 Follow up/Referrals: Raisa Hobson MD [Physician] - 6 Weeks (for outpatient colonoscopy after diverticulitis) Discharge Health Status Health Concerns: Diverticulitis Diet/Activity/Treatments Diet: Diet as Tolerated Diet comment: Some recommend low fiber diet after diverticulitis Activity: As tolerated Visit Report/Discharge Packet Instructions: Low-Fiber/Low-Residue Diet, DI for Diverticulitis Quality VTE Deep Vein Thrombosis/Pulmonary Embolism Present on Admission: No
[2020-12-28] MEDS: AMOXICILLIN/CLAV 875/125 MG 1 TAB PO (09:06)
--- NOTE | 2020-12-28 09:58 | PC.NURSE ---
Discharge: Pt feels ready to d/c home. Did have a liquid stool and she discussed this with MD. MD gave pt d/c instructions. She knows she needs to schedule for an outpt colonoscopy which will be facilitated by her pcp. Rx was esent and she was shown this. Given priority load pass. Reviewed d/c packet. Questions answered. Pt d/c to home via auto. Denies any concerns at time of d/c.
--- NOTE | 2020-12-28 13:02 | CM.DPC ---
DCP: continued: case received, dc order noted. Went to room this morning to deliver IMM #2. Given to pt's as pt was in the bathroom and they were preparing to leave for a morning ferry back to [place]. Spouse Sylvester confirmed that they had no concerns re the d/c home today.
== END 2020-12-28 09:30 | disposition home or self-care (01) | DRG 392 ==
LOC: ED 17:00 → AC 17:02
PROVIDERS: Nurse Practitioner Family; Admitting Provider Internal Medicine; Emergency Provider Emergency Medicine; Referring Provider Emergency Medicine; Visit Provider Internal Medicine
DX: K57.32 Diverticulitis of large intestine without perforation or abscess without bleeding (principal); I10 Essential (primary) hypertension; F32.9 Major depressive disorder, single episode, unspecified; Z20.822 Contact with and (suspected) exposure to COVID-19
CPT/HCPCS: 36415; 74177; 80048; 80053; 81003; 81015; 83605; 83690; 84145; 85025; 85610; 85730; 87635; 93005; 93010; 96361; 96365; 99232; 99284; C9803; J2543; Q9967

== ENCOUNTER 2022-12-24 11:01 | Inpatient (IN) | payer MEDICARE, BC, SELFPAY ==
[2022-12-24] VITALS (27 sets, daily range): BP systolic 86–146; BP diastolic 51–73; PULSE 49–75; RESP 12–24; TEMP 36.6–37.8; O2SAT 92–100; BMI 29.2; BMI 30.4
--- NOTE | 2022-12-24 11:13 | ED_ITS ---
HPI - General Adult General Chief complaint: Dizziness Stated complaint: lighthead/cough/dizzy/fainted on plane Time Seen by Provider: 12/24/22 11:12 History of Present Illness HPI narrative: 67-year-old female nonsmoker without chronic medical history presents with her for evaluation of feeling a bit dizzy and lightheaded. She states that she would recently traveled to [facility] and is concerned that exposure to smoke and pollen may have contributed to how she is feeling. On her flight yesterday she started feeling a bit lightheaded and had a brief syncopal event and returned back to normal. There was no seizure-like activity. She was not in the process of changing position or using the toilet. She denies any chest pain, palpitations or shortness of breath. She is had no fever or chills. She denies any extremity numbness, tingling or weakness. She presents today still feeling a bit under the weather, complaining of a bit of lightheadedness upon standing but otherwise well. She denies new medications or dietary change. Related Data Home Medications Medication Instructions Recorded Confirmed alprazolam 0.5 mg tablet 0.5 mg PO BEDTIME insomnia 12/26/20 12/26/20 trazodone 50 mg tablet 50 mg PO BEDTIME insomnia 12/26/20 12/26/20 Allergies Allergy/AdvReac Type Severity Reaction Status Date / Time No Known Drug Allergies Allergy Verified 12/24/22 11:31 Review of Systems Review of Systems Narrative: GENERAL: See HPI HEENT: Denies sinus pain, ear pain, sore throat, difficulty swallowing, dizziness. RESPIRATORY: Denies dyspnea, cough, wheezing, hemoptysis, sputum. CARDIOVASCULAR: See HPI GASTROINTESTINAL: See HPI : Denies dysuria, frequency, incontinence, hematuria, urinary retention. MUSCULOSKELETAL: denies weakness, joint pain, or bony pain SKIN: Denies rash, skin lesions, or other NEUROLOGIC: Denies weakness, headache, numbness, change in speech, confusion, seizures, incoordination. PSYCHIATRIC: No concerning psychosocial issues. 12 point review of systems is negative except for those stated above Patient History Medical History Depression Essential hypertension Surgical History H/O section History of total right knee replacement (TKR) Family History Mother Diverticular disease Father CVA (cerebral vascular accident) C. difficile colitis Brother Hyperlipidemia Social History household members: spouse Smoking Status: Never smoker alcohol intake: current Smoking Status: Never smoker alcohol intake frequency: a few times a month Substance Use Type: does not use Exam Narrative Exam Narrative: GENERAL: [67] year old patient appears stated age. Well-developed patient, in mild distress. HEAD: Atraumatic. Normocephalic. EYES: Pupils equal round and reactive. Extraocular motions intact. No scleral icterus. No injection or drainage. ENT: Dry mucous membranes. Nose without bleeding, purulent drainage. Throat without erythema, tonsillar hypertrophy or exudate. Airway patent. NECK: Trachea midline. Non tender CARDIOVASCULAR: Regular rate and rhythm without murmurs, gallops, or rubs. RESPIRATORY: Clear to auscultation. Breath sounds equal bilaterally. No wheezes, rales, or rhonchi. GASTROINTESTINAL: Abdomen soft, non-tender, nondistended. EXTREMITIES: No edema or joint tenderness. BACK: Nontender without deformity or crepitance. No flank tenderness. NEURO: AOx3. SKIN: No rash or erythema of visible areas Initial Vital Signs Initial Vital Signs: Vital Signs Pulse Rate 53 L 12/24/22 11:11 Pulse Oximetry 100 12/24/22 11:11 Course Course Course Narrative: Fractional Excretion of Sodium (FENa) from [facility] on 12/24/2022 All calculations should be rechecked by clinician prior to use RESULT SUMMARY: 0.4 % FENa Pre-Renal e.g. Hypovolemia, heart failure, renal artery stenosis, sepsis (anything causing decreased effective renal perfusion). Remember, contrast-induced nephropathy will often look pre-renal. INPUTS: Serum sodium ?> 139 mEq/L Serum creatinine ?> 4.0 mg/dL Urine sodium ?> 17 mEq/L Urine creatinine ?> 109 mg/dL Orders Ordered: Acetaminophen (Acetaminophen 325 Mg Tablet) 650 mg PO Q6H PRN PRN Reason: Fever/Mild Pain (1-3) Last Admin: 12/25/22 02:31 Dose: 650 mg Documented By: CORNEL Heparin Sodium (Porcine) (Heparin 5,000 Unit/Ml Vial) 5,000 unit SUBCUT BID MARANDA Last Admin: 12/24/22 21:54 Dose: 5,000 unit Documented By: CORNEL Lactated Ringer's (Lactated Ringers) 1,000 mls @ 100 mls/hr IV CONT MARANDA Last Admin: 12/25/22 02:33 Dose: 100 mls/hr Documented By: Infusion: 12/25/22 02:33 Dose: 100 mls/hr Documented By: Admin: 12/24/22 17:08 Dose: 100 mls/hr Documented By: GERA Naloxone HCl (Naloxone 0.4 Mg/Ml Vial) 0.2 mg IV Q2MIN PRN PRN Reason: Opiate Reversal Ondansetron HCl (Ondansetron 4 Mg/2 Ml Inj) 4 mg IV Q8HR PRN PRN Reason: Nausea And Vomiting Discontinued Medications Enoxaparin Sodium (Enoxaparin 100 Mg/Ml Syringe) 75 mg 1 mg/kg (75 mg) SUBCUT NOW ONE Stop: 12/24/22 12:16 Last Admin: 12/24/22 12:15 Dose: 75 mg Documented By: JCARLOS Sodium Chloride (Normal Saline 0.9%) 1,000 mls @ 1,000 mls/hr IV BOLUS ONE Stop: 12/24/22 12:11 Last Infusion: 12/24/22 15:14 Dose: 0 mls/hr Documented By: Admin: 12/24/22 11:34 Dose: 1,000 mls/hr Documented By: JCARLOS POTASSIUM CHLORIDE IN WATER (Potassium Cl 10 Meq/100 Ml Jeanne) 10 meq in 100 mls @ 100 mls/hr IV Q1H MARANDA Stop: 12/24/22 15:59 Last Admin: 12/24/22 17:13 Dose: Not Given Documented By: Infusion: 12/24/22 15:40 Dose: 0 mls/hr Documented By: Admin: 12/24/22 15:12 Dose: 100 mls/hr Documented By: Infusion: 12/24/22 14:23 Dose: 100 mls/hr Documented By: Admin: 12/24/22 13:23 Dose: 100 mls/hr Documented By: Infusion: 12/24/22 13:16 Dose: 100 mls/hr Documented By: Admin: 12/24/22 12:16 Dose: 100 mls/hr Documented By: JCARLOS Sodium Chloride (Normal Saline 0.9%) 1,000 mls @ 1,000 mls/hr IV BOLUS ONE Stop: 12/24/22 14:20 Last Infusion: 12/24/22 14:30 Dose: 0 mls/hr Documented By: Admin: 12/24/22 13:23 Dose: 1,000 mls/hr Documented By: JCARLOS Acetaminophen (Ofirmev) 1,000 mg in 100 mls @ 400 mls/hr IV NOW ONE Stop: 12/24/22 15:50 Last Infusion: 12/24/22 16:01 Dose: 0 mls/hr Documented By: Admin: 12/24/22 16:00 Dose: 400 mls/hr Documented By: JCARLOS Lactated Ringer's (Lactated Ringers) 1,000 mls @ 1,000 mls/hr IV BOLUS ONE Stop: 12/24/22 21:17 Last Admin: 12/24/22 20:25 Dose: 1,000 mls/hr Documented By: CORNEL Potassium Chloride (Potassium Chloride 20 Meq/15 Ml Udc) 40 meq PO NOW ONE Stop: 12/24/22 11:58 Last Admin: 12/24/22 17:04 Dose: Not Given Documented By: JCARLOS Vital Signs Vital signs: Vital Signs - 8 hr 12/24/22 11:25 12/24/22 11:11 12/24/22 11:35 Temperature 97.9 F Pulse Rate 49 L 53 L 70 Respiratory Rate 18 21 Blood Pressure 146/73 H Pulse Oximetry 100 100 94 Oxygen Delivery Method Room Air 12/24/22 11:58 12/24/22 11:58 12/24/22 12:00 Temperature Pulse Rate 52 L Respiratory Rate 13 Blood Pressure 128/60 108/59 L Pulse Oximetry 99 Oxygen Delivery Method 12/24/22 12:00 12/24/22 12:30 12/24/22 12:30 Temperature Pulse Rate 50 L 54 L Respiratory Rate 16 19 Blood Pressure 111/59 L Pulse Oximetry 100 100 Oxygen Delivery Method 12/24/22 12:32 12/24/22 12:32 12/24/22 12:45 Temperature Pulse Rate 56 L 57 L Respiratory Rate 14 12 Blood Pressure 112/63 115/59 L Pulse Oximetry 100 100 Oxygen Delivery Method 12/24/22 13:00 12/24/22 13:20 Temperature Pulse Rate 60 61 Respiratory Rate 19 24 Blood Pressure 109/67 117/60 Pulse Oximetry 100 96 Oxygen Delivery Method Room Air Medical Decision Making Lab Data 12/25/22 06:00 12/24/22 14:01 Labs: Lab Results 12/24/22 12/24/22 12/24/22 Range/Units 11:20 11:20 11:20 WBC 9.7 (4.5-11.0) X10^3/uL RBC 3.96 L (4.0-5.2) X10^6/uL Hgb 11.4 L (12.0-16.0) g/dL Hct 32.7 L (36-46) % MCV 82.5 (80-100) fL MCH 28.7 (26-34) PG MCHC 34.8 (30-36) % RDW 14.5 (11.6-14.8) % Plt Count 215 (150-400) X10^3/uL Neut % (Auto) 53.4 (50-75) % Lymph % (Auto) 26.7 (25-40) % [place] % (Auto) 17.2 H (3-14) % Eos % (Auto) 1.7 L (2-4) % Baso % (Auto) 1.0 (0-2) % Neut # (Auto) 5200 (7499-4061) /uL Lymph # (Auto) 2600 (8374-9431) /uL [place] # (Auto) 1700 H (0-900) /uL Eos # (Auto) 200 (0-450) /uL Baso # (Auto) 100 (0-100) /uL PT (10.1-12.7) SECONDS INR (0.9-1.3) D-Dimer 1089 H (<500) ng/ml Sodium 139 (137-145) mmol/L Potassium 2.5 L* (3.4-5.1) mmol/L Chloride 105 (98-107) mmol/L Carbon Dioxide 23 (22-32) mmol/L BUN 39 H (7-17) mg/dL Creatinine 4.00 H (0.52-1.04) mg/dL Estimated GFR 12 L (>60) mL/min BUN/Creatinine Ratio 9.8 (6-22) Glucose 101 (80-110) mg/dL Lactate (0.7-2.1) mmol/L Calcium 9.0 (8.4-10.2) mg/dL Magnesium (1.6-2.3) mg/dL Total Bilirubin 0.3 (0.2-1.3) mg/dL AST 19 (14-36) IU/L ALT 16 (<35) IU/L Alkaline Phosphatase 66 (38-126) U/L Total Creatine Kinase (30-135) U/L CK-MB (CK-2) CK-MB (CK-2) Rel Index Troponin I (0.01-0.034) ng/mL NT-Pro-B Natriuret Pep (<125) pg/mL Total Protein 7.7 (6.3-8.2) g/dL Albumin 3.9 (3.5-5.0) g/dL Globulin 3.8 (1.7-4.1) g/dL Albumin/Globulin Ratio 1.0 (1.0-2.8) Lipase (23-300) U/L Procalcitonin (<0.5) ng/mL Urine Color Urine Appearance Urine pH (4.5-8.0) Ur Specific [place] (1.000-1.035) Urine Protein (Negative) Urine Glucose (UA) (Negative) g/dL Urine Ketones (NEGATIVE) Urine Occult Blood (Negative) Urine Nitrate (Negative) Urine Bilirubin (NEGATIVE) Urine Urobilinogen (0.2) E.U./dL Ur Leukocyte Esterase (NEGATIVE) Urine RBC (0-5/HPF) Urine WBC (0-5/HPF) Ur Squamous Epith Cells (0-5/HPF) Urine Bacteria (None) Ur Culture Indicated? Ur Random Sodium (30-90) mmol/L Urine Creatinine mg/dL SARS-CoV-2 (PCR) (Negative) Influenza A (RT-PCR) (NEGATIVE) Influenza B (RT-PCR) (NEGATIVE) RSV (PCR) (Negative) 12/24/22 12/24/22 12/24/22 Range/Units 11:20 11:20 11:27 WBC (4.5-11.0) X10^3/uL RBC (4.0-5.2) X10^6/uL Hgb (12.0-16.0) g/dL Hct (36-46) % MCV (80-100) fL MCH (26-34) PG MCHC (30-36) % RDW (11.6-14.8) % Plt Count (150-400) X10^3/uL Neut % (Auto) (50-75) % Lymph % (Auto) (25-40) % [place] % (Auto) (3-14) % Eos % (Auto) (2-4) % Baso % (Auto) (0-2) % Neut # (Auto) (0435-0372) /uL Lymph # (Auto) (6448-7437) /uL [place] # (Auto) (0-900) /uL Eos # (Auto) (0-450) /uL Baso # (Auto) (0-100) /uL PT 13.6 H (10.1-12.7) SECONDS INR 1.2 (0.9-1.3) D-Dimer (<500) ng/ml Sodium (137-145) mmol/L Potassium (3.4-5.1) mmol/L Chloride (98-107) mmol/L Carbon Dioxide (22-32) mmol/L BUN (7-17) mg/dL Creatinine (0.52-1.04) mg/dL Estimated GFR (>60) mL/min BUN/Creatinine Ratio (6-22) Glucose (80-110) mg/dL Lactate (0.7-2.1) mmol/L Calcium (8.4-10.2) mg/dL Magnesium 2.0 (1.6-2.3) mg/dL Total Bilirubin (0.2-1.3) mg/dL AST (14-36) IU/L ALT (<35) IU/L Alkaline Phosphatase (38-126) U/L Total Creatine Kinase 39 (30-135) U/L CK-MB (CK-2) TNP CK-MB (CK-2) Rel Index TNP Troponin I < 0.012 (0.01-0.034) ng/mL NT-Pro-B Natriuret Pep 59 (<125) pg/mL Total Protein (6.3-8.2) g/dL Albumin (3.5-5.0) g/dL Globulin (1.7-4.1) g/dL Albumin/Globulin Ratio (1.0-2.8) Lipase 133 (23-300) U/L Procalcitonin (<0.5) ng/mL Urine Color Urine Appearance Urine pH (4.5-8.0) Ur Specific [place] (1.000-1.035) Urine Protein (Negative) Urine Glucose (UA) (Negative) g/dL Urine Ketones (NEGATIVE) Urine Occult Blood (Negative) Urine Nitrate (Negative) Urine Bilirubin (NEGATIVE) Urine Urobilinogen (0.2) E.U./dL Ur Leukocyte Esterase (NEGATIVE) Urine RBC (0-5/HPF) Urine WBC (0-5/HPF) Ur Squamous Epith Cells (0-5/HPF) Urine Bacteria (None) Ur Culture Indicated? Ur Random Sodium (30-90) mmol/L Urine Creatinine mg/dL SARS-CoV-2 (PCR) Negative (Negative) Influenza A (RT-PCR) Flu a positive H (NEGATIVE) Influenza B (RT-PCR) Flu b negative (NEGATIVE) RSV (PCR) Negative (Negative) 12/24/22 12/24/22 12/24/22 Range/Units 11:56 11:56 14:01 WBC (4.5-11.0) X10^3/uL RBC (4.0-5.2) X10^6/uL Hgb (12.0-16.0) g/dL Hct (36-46) % MCV (80-100) fL MCH (26-34) PG MCHC (30-36) % RDW (11.6-14.8) % Plt Count (150-400) X10^3/uL Neut % (Auto) (50-75) % Lymph % (Auto) (25-40) % [place] % (Auto) (3-14) % Eos % (Auto) (2-4) % Baso % (Auto) (0-2) % Neut # (Auto) (8428-6570) /uL Lymph # (Auto) (3437-0070) /uL [place] # (Auto) (0-900) /uL Eos # (Auto) (0-450) /uL Baso # (Auto) (0-100) /uL PT (10.1-12.7) SECONDS INR (0.9-1.3) D-Dimer (<500) ng/ml Sodium 141 (137-145) mmol/L Potassium 2.8 L (3.4-5.1) mmol/L Chloride 112 H (98-107) mmol/L Carbon Dioxide 19 L (22-32) mmol/L BUN 34 H (7-17) mg/dL Creatinine 3.59 H (0.52-1.04) mg/dL Estimated GFR 13 L (>60) mL/min BUN/Creatinine Ratio 9.5 (6-22) Glucose 94 (80-110) mg/dL Lactate (0.7-2.1) mmol/L Calcium 7.4 L (8.4-10.2) mg/dL Magnesium (1.6-2.3) mg/dL Total Bilirubin (0.2-1.3) mg/dL AST (14-36) IU/L ALT (<35) IU/L Alkaline Phosphatase (38-126) U/L Total Creatine Kinase (30-135) U/L CK-MB (CK-2) CK-MB (CK-2) Rel Index Troponin I (0.01-0.034) ng/mL NT-Pro-B Natriuret Pep (<125) pg/mL Total Protein (6.3-8.2) g/dL Albumin (3.5-5.0) g/dL Globulin (1.7-4.1) g/dL Albumin/Globulin Ratio (1.0-2.8) Lipase (23-300) U/L Procalcitonin (<0.5) ng/mL Urine Color Yellow Urine Appearance Clear Urine pH 6.5 (4.5-8.0) Ur Specific [place] 1.015 (1.000-1.035) Urine Protein 2+ H (Negative) Urine Glucose (UA) 1+ H (Negative) g/dL Urine Ketones Negative (NEGATIVE) Urine Occult Blood 1+ H (Negative) Urine Nitrate Negative (Negative) Urine Bilirubin Negative (NEGATIVE) Urine Urobilinogen 0.2 (0.2) E.U./dL Ur Leukocyte Esterase Negative (NEGATIVE) Urine RBC 0-1/hpf (0-5/HPF) Urine WBC 0-1/hpf (0-5/HPF) Ur Squamous Epith Cells 0-1 /hpf (0-5/HPF) Urine Bacteria Occasional (0-1) (None) Ur Culture Indicated? Cult not indicated Ur Random Sodium 17 L (30-90) mmol/L Urine Creatinine 108.9 mg/dL SARS-CoV-2 (PCR) (Negative) Influenza A (RT-PCR) (NEGATIVE) Influenza B (RT-PCR) (NEGATIVE) RSV (PCR) (Negative) 12/24/22 12/24/22 Range/Units 14:01 14:01 WBC (4.5-11.0) X10^3/uL RBC (4.0-5.2) X10^6/uL Hgb (12.0-16.0) g/dL Hct (36-46) % MCV (80-100) fL MCH (26-34) PG MCHC (30-36) % RDW (11.6-14.8) % Plt Count (150-400) X10^3/uL Neut % (Auto) (50-75) % Lymph % (Auto) (25-40) % [place] % (Auto) (3-14) % Eos % (Auto) (2-4) % Baso % (Auto) (0-2) % Neut # (Auto) (5707-3585) /uL Lymph # (Auto) (6004-9628) /uL [place] # (Auto) (0-900) /uL Eos # (Auto) (0-450) /uL Baso # (Auto) (0-100) /uL PT (10.1-12.7) SECONDS INR (0.9-1.3) D-Dimer (<500) ng/ml Sodium 139 (137-145) mmol/L Potassium 2.8 L (3.4-5.1) mmol/L Chloride 112 H (98-107) mmol/L Carbon Dioxide 20 L (22-32) mmol/L BUN 35 H (7-17) mg/dL Creatinine 3.52 H (0.52-1.04) mg/dL Estimated GFR 14 L (>60) mL/min BUN/Creatinine Ratio 9.9 (6-22) Glucose 94 (80-110) mg/dL Lactate 1.0 (0.7-2.1) mmol/L Calcium 7.4 L (8.4-10.2) mg/dL Magnesium (1.6-2.3) mg/dL Total Bilirubin (0.2-1.3) mg/dL AST (14-36) IU/L ALT (<35) IU/L Alkaline Phosphatase (38-126) U/L Total Creatine Kinase (30-135) U/L CK-MB (CK-2) CK-MB (CK-2) Rel Index Troponin I (0.01-0.034) ng/mL NT-Pro-B Natriuret Pep (<125) pg/mL Total Protein (6.3-8.2) g/dL Albumin (3.5-5.0) g/dL Globulin (1.7-4.1) g/dL Albumin/Globulin Ratio (1.0-2.8) Lipase (23-300) U/L Procalcitonin 0.12 (<0.5) ng/mL Urine Color Urine Appearance Urine pH (4.5-8.0) Ur Specific [place] (1.000-1.035) Urine Protein (Negative) Urine Glucose (UA) (Negative) g/dL Urine Ketones (NEGATIVE) Urine Occult Blood (Negative) Urine Nitrate (Negative) Urine Bilirubin (NEGATIVE) Urine Urobilinogen (0.2) E.U./dL Ur Leukocyte Esterase (NEGATIVE) Urine RBC (0-5/HPF) Urine WBC (0-5/HPF) Ur Squamous Epith Cells (0-5/HPF) Urine Bacteria (None) Ur Culture Indicated? Ur Random Sodium (30-90) mmol/L Urine Creatinine mg/dL SARS-CoV-2 (PCR) (Negative) Influenza A (RT-PCR) (NEGATIVE) Influenza B (RT-PCR) (NEGATIVE) RSV (PCR) (Negative) Urine Dip Bedside Urine Glucose 500 mg/dl Bedside Urine Bilirubin - Negative Bedside Urine Ketone - Negative Urine Specific [place] 1.015 Bedside Urine Occult Blood + Bedside Urine pH 6.0 Bedside Urine Protein ++ 100 Bedside Urine Urobilinogen - Negative Bedside Urine Nitrite - Negative Bedside Urine Leukocytes - Negative Esterase Point of care testing: Urine Dip Bedside Urine Glucose 500 mg/dl Bedside Urine Bilirubin - Negative Bedside Urine Ketone - Negative Urine Specific [place] 1.015 Bedside Urine Occult Blood + Bedside Urine pH 6.0 Bedside Urine Protein ++ 100 Bedside Urine Urobilinogen - Negative Bedside Urine Nitrite - Negative Bedside Urine Leukocytes - Negative Esterase MDM Narrative Medical decision making narrative: 67-year-old female largely previously healthy presents with feeling generally off and an unprovoked syncopal episode. Though she denies any significant change in medications or diet has had no vomiting or diarrhea she presents appearing dry with dry mucous membranes and poor skin turgor, she has an acute kidney injury with creatinine bumped to 4 which appears to be prerenal in nature given her exam and FENA of 0.4%. Despite her acute kidney injury she is found to have a low potassium of 2.5 initially and we were careful in the emergency department to replace slowly given her high potential to become hyperkalemic. Renal ultrasound shows no obstructive uropathy and after 2 L of fluid she has good urine output, stable vitals, improvement in creatinine. Respiratory swab shows influenza a which could certainly explain some of her symptoms including dry cough, she is not tachycardic, hypoxemic or demonstrating signs of respiratory distress. That being said she is found to have a critically elevated D-dimer and given recent travel and unexplained syncopal event pulmonary embolism is considered, given her renal function she is not a candidate for CT angiogram and is therefore given a treatment dose of Lovenox for coverage of possible PE. She requires hospitalization for further evaluation and stabilization of her condition Critical Care Time Critical Care Time Critical Care Time: Yes Total Critical Care Time: 35 Attestation: The high probability of a clinically significant, sudden or life threatening deterioration of the [CV] system(s) required my full and direct attention, intervention and personal management. The aggregate critical care time was [35] minutes. This time is in addition to time spent performing reported procedures but includes the following: [x] Data Review and interpretation [x] Patient assessment and monitoring of vital signs [x] Documentation [x] Medication orders and management Discharge Plan Departure Patient Disposition: Admitted As Inpatient Clinical Impression: Acute kidney injury, Acute hypokalemia, Flu Admit Date/Time: 12/24/22 15:41 Admit Provider: Sky Martel
--- NOTE | 2022-12-24 11:13 | DI.RAD.S_ITS ---
PROCEDURE: XR CHEST 2V INDICATIONS: SOB, weak, syncope TECHNIQUE: 2 views of the chest were acquired. COMPARISON: None. FINDINGS: Surgical changes and devices: None. Lungs and pleura: Lungs are clear. No pleural effusions or pneumothorax. Mediastinum: Mediastinal contours are normal. Heart size is normal. Bones and chest wall: No suspicious bony abnormalities. Soft tissues appear unremarkable. IMPRESSION: No evidence acute pulmonary process. Dictated by: David Fernandez M.D. on 12/24/2022 at 11:52 Approved by: David Fernandez M.D. on 12/24/2022 at 11:52
[2022-12-24] MEDS: SODIUM CHLORIDE 0.9% 1,000 ML 1000 ML IV ×2 (11:34→13:23)
[2022-12-24 11:36] LABS: Add Manual Diff / Slide Review NO; Basophils Absolute Auto 100 /uL (0-100); Eosinophils Absolute Auto 200 /uL (0-450); Eosinophils Percent Auto 1.7 % (2-4); Hematocrit 32.7 % (36-46); Hemoglobin 11.4 g/dL (12.0-16.0); Lymphocytes Absolute Auto 2600 /uL (1100-4500); Lymphocytes Percent Auto 26.7 % (25-40); Mean Corpuscular HGB Conc 34.8 % (30-36); Mean Corpuscular Hemoglobin 28.7 PG (26-34); Mean Corpuscular Volume 82.5 fL (80-100); Monocytes Absolute Auto 1700 /uL (0-900); Monocytes Percent Auto 17.2 % (3-14); Neutrophils Absolute Auto 5200 /uL (1500-7000); Neutrophils Percent Auto 53.4 % (50-75); Platelet Count 215 X10^3/uL (150-400); Red Blood Cell Count 3.96 X10^6/uL (4.0-5.2); Red Cell Distribution Width 14.5 % (11.6-14.8); White Blood Cell Count 9.7 X10^3/uL (4.5-11.0)
--- NOTE | 2022-12-24 11:47 | PC.NURSE ---
Pt denies CP, states she is feeling lightheaded and weak for the past several days. Recently traveled by air to visit [place].
[2022-12-24 11:51] LABS: Alanine Aminotransferase 16 IU/L (<35); Albumin 3.9 g/dL (3.5-5.0); Alkaline Phosphatase 66 U/L (38-126); Aspartate Aminotransferase 19 IU/L (14-36); BUN Creatinine Ratio 9.8 (6-22); Bilirubin Total 0.3 mg/dL (0.2-1.3); Blood Urea Nitrogen 39 mg/dL (7-17); Carbon Dioxide 23 mmol/L (22-32); Chloride 105 mmol/L (98-107); Creatine Kinase 39 U/L (30-135); D Dimer 1089 ng/ml (<500); Estimated Glomerular Filt Rate 12 mL/min (>60); Globulin 3.8 g/dL (1.7-4.1); Glucose 101 mg/dL (80-110); HEMOLYSIS < 15 (0-50); Lipase 133 U/L (23-300); Sodium 139 mmol/L (137-145); Total Protein 7.7 g/dL (6.3-8.2)
[2022-12-24 11:53] LABS: Potassium 2.5 mmol/L (3.4-5.1)
[2022-12-24 11:56] LABS: INR 1.2 (0.9-1.3); Prothrombin Time 13.6 SECONDS (10.1-12.7)
--- NOTE | 2022-12-24 11:59 | DI.US.S_ITS ---
PROCEDURE: US RENAL COMPLETE INDICATIONS: acute renal failure TECHNIQUE: Real-time scanning was performed of the kidneys and bladder, with image documentation. COMPARISON: None. FINDINGS: Kidneys: Kidneys are normal in size. Right kidney measures 12.1 cm long; left kidney measures 11.1 cm long. Right renal cortical thickness is 0.9 cm; left renal cortical thickness is 0.9 cm. Renal cortical echotexture is normal. No hydronephrosis or nephrolithiasis. No suspicious solid mass lesions. Bladder: Post-void residual is 26.0 mL. Pre-void images demonstrate no intraluminal masses or stones. On pre-void images, bilateral ureteral jets are noted with color Doppler interrogation. (Of note, ureteral jets may not be detectable in up to 25% of cases due to insufficient differences in specific gravity between ureteral and bladder urine). Miscellaneous: No free pelvic fluid. IMPRESSION: Unremarkable ultrasound examination of bilateral kidneys. No gross abnormality is seen in decompressed urinary bladder. Small amount of postvoid residual. Dictated by: Jeffry Valentin M.D. on 12/24/2022 at 12:48 Approved by: Jeffry Valentin M.D. on 12/24/2022 at 12:55
[2022-12-24 12:03] LABS: NT-proBNP (BNP-Adult 18+) 59 pg/mL (<125); Troponin I < 0.012 ng/mL (0.01-0.034)
[2022-12-24] MEDS: ENOXAPARIN 100 MG/ML SYRINGE 75 MG SUBCUT (12:15)
[2022-12-24] MEDS: POTASSIUM CHLORIDE IN WATER 10 MEQ/100 ML PIGGYBACK 100 MEQ IV ×3 (12:16→15:12)
[2022-12-24 12:20] LABS: Creatinine Urine Random 108.9 mg/dL; Sodium Urine Random 17 mmol/L (30-90)
[2022-12-24 12:27] LABS: Influenza A - CEPHEID Flu A POSITIVE (NEGATIVE); Influenza B - CEPHEID Flu B NEGATIVE (NEGATIVE); Respiratory Syncytial Virus Negative (Negative)
[2022-12-24 13:02] LABS: COVID-19 CEPHEID 4-PLEX PCR Negative (Negative)
[2022-12-24 13:04] LABS: Appearance Urine UA CLEAR; Bilirubin Urine UA NEGATIVE (NEGATIVE); Color Urine UA YELLOW; Glucose Urine UA 1+ g/dL (Negative); Ketones Urine UA NEGATIVE (NEGATIVE); Leukocyte Esterase Urine UA NEGATIVE (NEGATIVE); Nitrite Urine UA NEGATIVE (Negative); Occult Blood Urine UA 1+ (Negative); Protein Urine UA 2+ (Negative); Specific Gravity Urine UA 1.015 (1.000-1.035); Urobilinogen Urine UA 0.2 E.U./dL (0.2)
[2022-12-24 13:28] LABS: pH Urine UA 6.5 (4.5-8.0)
[2022-12-24 13:33] LABS: Bacteria Urine Occasional (0-1); Culture Indicated Urine Cult Not Indicated; RBC Urine 0-1/HPF (0-5/HPF); Squamous Epithelial Cell Urine 0-1 /HPF (0-5/HPF); WBC Urine 0-1/HPF (0-5/HPF)
[2022-12-24 14:27] LABS: BUN Creatinine Ratio 9.5 (6-22); Blood Urea Nitrogen 34 mg/dL (7-17); Calcium 7.4 mg/dL (8.4-10.2); Carbon Dioxide 19 mmol/L (22-32); Chloride 112 mmol/L (98-107); Estimated Glomerular Filt Rate 13 mL/min (>60); Glucose 94 mg/dL (80-110); HEMOLYSIS < 15 (0-50); Potassium 2.8 mmol/L (3.4-5.1); Sodium 141 mmol/L (137-145)
[2022-12-24 15:50] LABS: BUN Creatinine Ratio 9.9 (6-22); Blood Urea Nitrogen 35 mg/dL (7-17); Calcium 7.4 mg/dL (8.4-10.2); Carbon Dioxide 20 mmol/L (22-32); Chloride 112 mmol/L (98-107); Estimated Glomerular Filt Rate 14 mL/min (>60); Glucose 94 mg/dL (80-110); HEMOLYSIS < 15 (0-50); Potassium 2.8 mmol/L (3.4-5.1); Sodium 139 mmol/L (137-145)
[2022-12-24] MEDS: ACETAMINOPHEN IV 1,000 MG/100 ML VIAL 400 MG IV (16:00)
[2022-12-24 16:06] LABS: Procalcitonin 0.12 ng/mL (<0.5)
--- NOTE | 2022-12-24 17:05 | PC.NURSE ---
Liquid PO K+ not given per physician order. See MAR.
[2022-12-24] MEDS: LACTATED RINGERS 1,000 ML 100 ML IV (17:08)
--- NOTE | 2022-12-24 17:19 | PC.NURSE ---
Addendum entered by Renita Cason R.N. 12/24/22 19:27: Patient K+ recheck is 2.8 she had received about 2.5 bags k riders in ED. MD notified pt c/o burning in vein with K+riders, oral replacement frome ED dc'd. Continued to monitor. Pt NSR on telemetry. Pt did have x1 loose stool this evening. Original Note: Pt arrived from ED at approximately 1630 this afternoon. She is A&OX4, on RA. Low grade temp of 101. From ED acetaminophen delivered and administered IV. Pt is evaluated by MD at bedside. LR IVF at 100 ml/hr, oriented to room, call light in reach, bed alarm on. at bedside supportive.
--- NOTE | 2022-12-24 17:46 | P.HP_ITS ---
History of Present Illness History of Present Illness Date Patient Seen: 12/24/22 Time Patient Seen: 17:30 Chief complaint: lighthead/cough/dizzy/fainted on plane Narrative: This is a 67 year old female with PMH of HTN, depression but not on any current medications who presented to the emergency room with dizziness, fatigue, and fever. Patient went to [place] to visit her son. She arrived in [place] last Thursday. While there, on Thursday night she began to feel ill. She has had cough and nasal congestion / watery eyes consistent with allergies for the past couple of weeks but became very lethargic, weak with muscle aches and fever on Thursday. She was dizzy when standing and when she flew home yesterday she fainted on the plane. She was evaluated and given oxygen by an ER nurse but was let go from the airport home. states she passed out for around 30 seconds. She continued to feel weak, and came to the emergency room today when not feeling improved. She denies nausea or vomiting, she has been a bit constipated but denies diarrhea. She has some rib pain from coughing, but no chest pain, shortness of breath, or dyspnea on exertion. Her primary complaint now is fatigue. She is feeling a bit better after fluids in the emergency room. In the emergency room, vitals were unremarkable. Laboratory evaluation was notable for an initial creatinine of 4, with K of 2.5. Flu A was positive. CXR was unremarkable as was renal ultrasound. Repeat creatinine after a few L of fluid was 3.52 with improvement in potassium to 2.8. She had a few irregular heart beats on telemetry per the ER provider and was given some IV potassium. She was admitted for further management of AYAAN. [facility] Medical History Depression Essential hypertension Surgical History H/O section History of total right knee replacement (TKR) Family History Mother Diverticular disease Father CVA (cerebral vascular accident) C. difficile colitis Brother Hyperlipidemia Social History household members: spouse Smoking Status: Never smoker alcohol intake: current Meds Home Medications and Allergies Home Medications Medication Instructions Recorded Confirmed Type alprazolam 0.5 mg tablet 0.5 mg PO BEDTIME insomnia 12/26/20 12/26/20 History trazodone 50 mg tablet 50 mg PO BEDTIME insomnia 12/26/20 12/26/20 History Allergies Allergy/AdvReac Type Severity Reaction Status Date / Time No Known Drug Allergies Allergy Verified 12/24/22 11:31 Review of Systems Review of Systems Narrative: All other systems reviewed with the patient and are negative unless otherwise stated. Exam Vital Signs (past 8 hours): - 12/24/22 11:25 12/24/22 11:11 12/24/22 11:35 Temperature 97.9 F Pulse Rate 49 L 53 L 70 Respiratory Rate 18 21 Blood Pressure 146/73 H Pulse Oximetry 100 100 94 Oxygen Delivery Method Room Air 12/24/22 11:58 12/24/22 11:58 12/24/22 12:00 Temperature Pulse Rate 52 L Respiratory Rate 13 Blood Pressure 128/60 108/59 L Pulse Oximetry 99 Oxygen Delivery Method 12/24/22 12:00 12/24/22 12:30 12/24/22 12:30 Temperature Pulse Rate 50 L 54 L Respiratory Rate 16 19 Blood Pressure 111/59 L Pulse Oximetry 100 100 Oxygen Delivery Method 12/24/22 12:32 12/24/22 12:32 12/24/22 12:45 Temperature Pulse Rate 56 L 57 L Respiratory Rate 14 12 Blood Pressure 112/63 115/59 L Pulse Oximetry 100 100 Oxygen Delivery Method 12/24/22 13:00 12/24/22 13:20 12/24/22 13:42 Temperature Pulse Rate 60 61 59 L Respiratory Rate 19 24 18 Blood Pressure 109/67 117/60 110/67 Pulse Oximetry 100 96 98 Oxygen Delivery Method Room Air Room Air 12/24/22 13:50 12/24/22 14:10 12/24/22 14:10 Temperature Pulse Rate 62 60 Respiratory Rate 24 24 Blood Pressure 106/67 125/58 L Pulse Oximetry 96 100 Oxygen Delivery Method Room Air 12/24/22 14:20 12/24/22 14:20 12/24/22 15:11 Temperature Pulse Rate 58 L 60 Respiratory Rate 16 21 Blood Pressure 119/57 L Pulse Oximetry 100 92 Oxygen Delivery Method 12/24/22 15:13 12/24/22 15:13 12/24/22 15:21 Temperature Pulse Rate 62 61 Respiratory Rate 14 14 Blood Pressure 124/54 L Pulse Oximetry 100 100 Oxygen Delivery Method 12/24/22 15:21 12/24/22 15:30 12/24/22 15:33 Temperature Pulse Rate 75 75 Respiratory Rate 17 24 Blood Pressure 119/59 L Pulse Oximetry 100 100 Oxygen Delivery Method 12/24/22 15:33 12/24/22 16:00 12/24/22 16:57 Temperature 100.1 F H Pulse Rate 62 70 Respiratory Rate 13 18 Blood Pressure 146/64 H 131/66 Pulse Oximetry 100 98 Oxygen Delivery Method Oxygen Delivery Method Room Air Narrative Exam Narrative: General:? Acutely ill appearing and lethargic female, NAD. HEENT:? Normocephalic, atraumatic, extraocular muscles intact, oral pharynx is clear and mucous membranes are moist. Neck: supple and symmetric, trachea is midline, no cervical adenopathy. Chest:? Normal AP diameter and contour without kyphoscoliosis, no tachypnea, equal chest rise bilaterally. Lungs:? CTA b/l no wheezing rhonchi or rales. Cardio:?RRR no m/r/g. Abdomen: S NT ND. Musculoskeletal:? Muscle strength and tone are equal within normal limits, no deformity. Extremities: No edema or joint effusions. No cyanosis or clubbing. Skin:? Pale,? Warm to touch,dry and intact without rashes, ulcerations or petechiae.? Neuro:? Alert and orientated x3,? sensation to touch intact in all extremities, no gross deficits noted of cranial nerves. Psych:? Patient has a well-kept appearance, appropriate affect, mental status attitude thought context and judgment are appropriate for age. Objective ECG Impression: Sinus bradycardia as interpreted by me. Labs 12/24/22 11:20 12/24/22 14:01 Labs: Laboratory Results - last 24 hr 12/24/22 12/24/22 12/24/22 11:20 11:20 11:20 WBC 9.7 RBC 3.96 L Hgb 11.4 L Hct 32.7 L MCV 82.5 MCH 28.7 MCHC 34.8 RDW 14.5 Plt Count 215 Neut % (Auto) 53.4 Lymph % (Auto) 26.7 [place] % (Auto) 17.2 H Eos % (Auto) 1.7 L Baso % (Auto) 1.0 Neut # (Auto) 5200 Lymph # (Auto) 2600 [place] # (Auto) 1700 H Eos # (Auto) 200 Baso # (Auto) 100 PT INR D-Dimer 1089 H Sodium 139 Potassium 2.5 L* Chloride 105 Carbon Dioxide 23 BUN 39 H Creatinine 4.00 H Estimated GFR 12 L BUN/Creatinine Ratio 9.8 Glucose 101 Lactate Calcium 9.0 Magnesium Total Bilirubin 0.3 AST 19 ALT 16 Alkaline Phosphatase 66 Total Creatine Kinase CK-MB (CK-2) CK-MB (CK-2) Rel Index Troponin I NT-Pro-B Natriuret Pep Total Protein 7.7 Albumin 3.9 Globulin 3.8 Albumin/Globulin Ratio 1.0 Lipase Procalcitonin Urine Color Urine Appearance Urine pH Ur Specific [place] Urine Protein Urine Glucose (UA) Urine Ketones Urine Occult Blood Urine Nitrate Urine Bilirubin Urine Urobilinogen Ur Leukocyte Esterase Urine RBC Urine WBC Ur Squamous Epith Cells Urine Bacteria Ur Culture Indicated? Ur Random Sodium Urine Creatinine SARS-CoV-2 (PCR) Influenza A (RT-PCR) Influenza B (RT-PCR) RSV (PCR) 12/24/22 12/24/22 12/24/22 11:20 11:20 11:27 WBC RBC Hgb Hct MCV MCH MCHC RDW Plt Count Neut % (Auto) Lymph % (Auto) [place] % (Auto) Eos % (Auto) Baso % (Auto) Neut # (Auto) Lymph # (Auto) [place] # (Auto) Eos # (Auto) Baso # (Auto) PT 13.6 H INR 1.2 D-Dimer Sodium Potassium Chloride Carbon Dioxide BUN Creatinine Estimated GFR BUN/Creatinine Ratio Glucose Lactate Calcium Magnesium 2.0 Total Bilirubin AST ALT Alkaline Phosphatase Total Creatine Kinase 39 CK-MB (CK-2) TNP CK-MB (CK-2) Rel Index TNP Troponin I < 0.012 NT-Pro-B Natriuret Pep 59 Total Protein Albumin Globulin Albumin/Globulin Ratio Lipase 133 Procalcitonin Urine Color Urine Appearance Urine pH Ur Specific [place] Urine Protein Urine Glucose (UA) Urine Ketones Urine Occult Blood Urine Nitrate Urine Bilirubin Urine Urobilinogen Ur Leukocyte Esterase Urine RBC Urine WBC Ur Squamous Epith Cells Urine Bacteria Ur Culture Indicated? Ur Random Sodium Urine Creatinine SARS-CoV-2 (PCR) Negative Influenza A (RT-PCR) Flu a positive H Influenza B (RT-PCR) Flu b negative RSV (PCR) Negative 12/24/22 12/24/22 12/24/22 11:56 11:56 14:01 WBC RBC Hgb Hct MCV MCH MCHC RDW Plt Count Neut % (Auto) Lymph % (Auto) [place] % (Auto) Eos % (Auto) Baso % (Auto) Neut # (Auto) Lymph # (Auto) [place] # (Auto) Eos # (Auto) Baso # (Auto) PT INR D-Dimer Sodium 141 Potassium 2.8 L Chloride 112 H Carbon Dioxide 19 L BUN 34 H Creatinine 3.59 H Estimated GFR 13 L BUN/Creatinine Ratio 9.5 Glucose 94 Lactate Calcium 7.4 L Magnesium Total Bilirubin AST ALT Alkaline Phosphatase Total Creatine Kinase CK-MB (CK-2) CK-MB (CK-2) Rel Index Troponin I NT-Pro-B Natriuret Pep Total Protein Albumin Globulin Albumin/Globulin Ratio Lipase Procalcitonin Urine Color Yellow Urine Appearance Clear Urine pH 6.5 Ur Specific [place] 1.015 Urine Protein 2+ H Urine Glucose (UA) 1+ H Urine Ketones Negative Urine Occult Blood 1+ H Urine Nitrate Negative Urine Bilirubin Negative Urine Urobilinogen 0.2 Ur Leukocyte Esterase Negative Urine RBC 0-1/hpf Urine WBC 0-1/hpf Ur Squamous Epith Cells 0-1 /hpf Urine Bacteria Occasional (0-1) Ur Culture Indicated? Cult not indicated Ur Random Sodium 17 L Urine Creatinine 108.9 SARS-CoV-2 (PCR) Influenza A (RT-PCR) Influenza B (RT-PCR) RSV (PCR) 12/24/22 12/24/22 14:01 14:01 WBC RBC Hgb Hct MCV MCH MCHC RDW Plt Count Neut % (Auto) Lymph % (Auto) [place] % (Auto) Eos % (Auto) Baso % (Auto) Neut # (Auto) Lymph # (Auto) [place] # (Auto) Eos # (Auto) Baso # (Auto) PT INR D-Dimer Sodium 139 Potassium 2.8 L Chloride 112 H Carbon Dioxide 20 L BUN 35 H Creatinine 3.52 H Estimated GFR 14 L BUN/Creatinine Ratio 9.9 Glucose 94 Lactate 1.0 Calcium 7.4 L Magnesium Total Bilirubin AST ALT Alkaline Phosphatase Total Creatine Kinase CK-MB (CK-2) CK-MB (CK-2) Rel Index Troponin I NT-Pro-B Natriuret Pep Total Protein Albumin Globulin Albumin/Globulin Ratio Lipase Procalcitonin 0.12 Urine Color Urine Appearance Urine pH Ur Specific [place] Urine Protein Urine Glucose (UA) Urine Ketones Urine Occult Blood Urine Nitrate Urine Bilirubin Urine Urobilinogen Ur Leukocyte Esterase Urine RBC Urine WBC Ur Squamous Epith Cells Urine Bacteria Ur Culture Indicated? Ur Random Sodium Urine Creatinine SARS-CoV-2 (PCR) Influenza A (RT-PCR) Influenza B (RT-PCR) RSV (PCR) Assessment & Plan Assessment & Plan narrative: 1. AYAAN, secondary to ATN - likely severe dehydration from influenza leading to ATN - creatinine of 4 improved to 3.5 with initial fluids - continue IV fluids - renal ultrasound unremarkable and without obstruction. 2. Influenza A - no indication of bacterial infection currently - patient does not wish for tamiflu at this time, also developed symptoms about 5 days ago, benefit minimal and risks given her AYAAN definitely outweight benefits. - symptom relief with tylenol for fever, cough medication or pain medications as needed. 3. Hypokalemia, acute - secondary to severe dehydation - continue fluids, with severe renal dysfunction will stop additional replacement at this time. Given about 2.5 10 meq bags IV before stopped. - continue telemetry after irregularities noted on telemetry in the ER for 24 hours or until potassium improved. EKG with sinus bradycardia. 4. Elevated D- dimer - likely in setting of acute infection. Patient is currently without chest pain or shortness of breath and lab value is non-specific. If patient is tachycardic, or has worsening respiratory status can consider CTA. 5. History of HTN - previous HTN, patient reports no longer taking medications after dietary changes and weight loss recently. 6. History of diverticulitis - patient did not obtain colonoscopy as previously recommended after prior admission for diverticulitis. Patient was encouraged to seek referral as an outpatient with PCP after discharge. Code: Full, surrogate is patient's spouse Dispo: Admitted inpatient as her stay is expected to exceed two midnights. DVT: HSQ BID I have utilized all available immediate resources to obtain, update, or review the patient's current medications. Additional history was obtained from patient's , and ER provider. Discussed care with bedside staff, ER provider, and patient and spouse. Reviewed patient's previous hospitalization reports, and relevant labs, documentation, and imaging from this visit. COVID-19 COVID-19 status: Negative Quality VTE Deep Vein Thrombosis/Pulmonary Embolism Present on Admission: No MIPS - Admit I confirm the patient?s Advance Care Plan is present, Code status is documented, Surrogate decision maker is in patient?s record [If Yes, STOP here]: Yes
[2022-12-24] MEDS: LACTATED RINGERS 1,000 ML 1000 ML IV (20:25)
[2022-12-24] MEDS: HEPARIN 5,000 UNIT/ML VIAL 5000 UNIT SUBCUT (21:54)
[2022-12-25] VITALS (11 sets, daily range): BP systolic 99–126; BP diastolic 49–64; PULSE 54–62; RESP 16–19; TEMP 36.7–38.1; O2SAT 96–100
--- NOTE | 2022-12-25 01:06 | PC.NURSE ---
2024--pt's b/p 91/55 as reported by TELEVISION TECHNICIAN; retook by RN and obtained /51; pt reported feeling a bit light-headed; Dr Cheng notified and orders rec'd; LR 1000ml bolus given; pt reported feeling better after the bolus and her sbp is now >100
[2022-12-25] MEDS: ACETAMINOPHEN 325 MG TABLET 650 MG PO ×3 (02:31→18:31)
[2022-12-25] MEDS: LACTATED RINGERS 1,000 ML 100 ML IV ×2 (02:33→12:16)
[2022-12-25 06:16] LABS: Add Manual Diff / Slide Review NO; Basophils Absolute Auto 100 /uL (0-100); Basophils Percent Auto 0.8 % (0-2); Eosinophils Absolute Auto 200 /uL (0-450); Eosinophils Percent Auto 2.8 % (2-4); Hematocrit 26.2 % (36-46); Hemoglobin 9.3 g/dL (12.0-16.0); Lymphocytes Absolute Auto 2000 /uL (1100-4500); Lymphocytes Percent Auto 22.9 % (25-40); Mean Corpuscular HGB Conc 35.4 % (30-36); Mean Corpuscular Hemoglobin 28.9 PG (26-34); Mean Corpuscular Volume 81.7 fL (80-100); Monocytes Absolute Auto 1000 /uL (0-900); Monocytes Percent Auto 10.9 % (3-14); Neutrophils Absolute Auto 5600 /uL (1500-7000); Neutrophils Percent Auto 62.6 % (50-75); Platelet Count 161 X10^3/uL (150-400); Red Cell Distribution Width 14.8 % (11.6-14.8); White Blood Cell Count 8.9 X10^3/uL (4.5-11.0)
[2022-12-25 06:30] LABS: BUN Creatinine Ratio 8.5 (6-22); Blood Urea Nitrogen 28 mg/dL (7-17); Calcium 7.7 mg/dL (8.4-10.2); Carbon Dioxide 17 mmol/L (22-32); Chloride 115 mmol/L (98-107); Estimated Glomerular Filt Rate 15 mL/min (>60); Glucose 101 mg/dL (80-110); HEMOLYSIS < 15 (0-50); Magnesium 1.5 mg/dL (1.6-2.3); Potassium 2.8 mmol/L (3.4-5.1); Sodium 140 mmol/L (137-145)
--- NOTE | 2022-12-25 06:52 | PC.NURSE ---
0652--pt has slept off and on all shift; she asked for Tylenol once because she had chills and felt like a fever was coming on; her temp at the time was 99.0; her blood pressure dropped early in the shift and she received a 1000ml IV bolus of LR to good effect; Her HR has been in the 50s while sleeping, occasionally dropping briefly into the upper 40s; awaiting lab results
[2022-12-25 06:57] LABS: TSH w/ Reflex to FT4 0.78 uIU/mL (0.47-4.68)
--- NOTE | 2022-12-25 07:36 | PM.PN.1 ---
Subjective Subjective Interval history: Patient feels well. Cr down to 3.29 today but potassium still 2.8. She reports using a diuretic triamterene-HCTZ at home and continuing to take it recently while in [facility]. Says she's been on it for years. Exam Vital Signs (past 8 hours): - 12/25/22 02:31 12/25/22 03:59 12/25/22 00:00 Temperature 99.0 F 98.8 F Pulse Rate 58 L Respiratory Rate 19 Blood Pressure 108/52 L Pulse Oximetry 99 99 Oxygen Delivery Method Room Air Oxygen Flow Rate 0 12/25/22 04:00 Temperature Pulse Rate Respiratory Rate Blood Pressure Pulse Oximetry 99 Oxygen Delivery Method Room Air Oxygen Flow Rate Oxygen Delivery Method Room Air Oxygen Flow Rate 0 Narrative Exam Narrative: General:? Pleasant female, NAD. HEENT:? Normocephalic, atraumatic, extraocular muscles intact, oral pharynx is clear and mucous membranes are moist. Neck: supple and symmetric, trachea is midline, no cervical adenopathy. Chest:? Normal AP diameter and contour without kyphoscoliosis, no tachypnea, equal chest rise bilaterally. Lungs:? CTA b/l no wheezing rhonchi or rales. Cardio:?RRR no m/r/g. Abdomen: S NT ND. Musculoskeletal:? Muscle strength and tone are equal within normal limits, no deformity. Extremities: No edema or joint effusions. No cyanosis or clubbing. Skin:? Pale,? Warm to touch,dry and intact without rashes, ulcerations or petechiae.? Neuro:? Alert and orientated x3,? sensation to touch intact in all extremities, no gross deficits noted of cranial nerves. Psych:? Patient has a well-kept appearance, appropriate affect, mental status attitude thought context and judgment are appropriate for age. Objective Labs 12/25/22 06:00 12/25/22 06:00 Labs: Laboratory Results - last 24 hr 12/24/22 12/24/22 12/24/22 11:20 11:20 11:20 WBC 9.7 RBC 3.96 L Hgb 11.4 L Hct 32.7 L MCV 82.5 MCH 28.7 MCHC 34.8 RDW 14.5 Plt Count 215 Neut % (Auto) 53.4 Lymph % (Auto) 26.7 [place] % (Auto) 17.2 H Eos % (Auto) 1.7 L Baso % (Auto) 1.0 Neut # (Auto) 5200 Lymph # (Auto) 2600 [place] # (Auto) 1700 H Eos # (Auto) 200 Baso # (Auto) 100 PT INR D-Dimer 1089 H Sodium 139 Potassium 2.5 L* Chloride 105 Carbon Dioxide 23 BUN 39 H Creatinine 4.00 H Estimated GFR 12 L BUN/Creatinine Ratio 9.8 Glucose 101 Hemoglobin A1c Lactate Calcium 9.0 Phosphorus Magnesium Total Bilirubin 0.3 AST 19 ALT 16 Alkaline Phosphatase 66 Total Creatine Kinase CK-MB (CK-2) CK-MB (CK-2) Rel Index Troponin I NT-Pro-B Natriuret Pep Total Protein 7.7 Albumin 3.9 Globulin 3.8 Albumin/Globulin Ratio 1.0 Lipase Procalcitonin TSH Urine Color Urine Appearance Urine pH Ur Specific [place] Urine Protein Urine Glucose (UA) Urine Ketones Urine Occult Blood Urine Nitrate Urine Bilirubin Urine Urobilinogen Ur Leukocyte Esterase Urine RBC Urine WBC Ur Squamous Epith Cells Urine Bacteria Ur Culture Indicated? Ur Random Sodium Urine Creatinine SARS-CoV-2 (PCR) Influenza A (RT-PCR) Influenza B (RT-PCR) RSV (PCR) 12/24/22 12/24/22 12/24/22 11:20 11:20 11:27 WBC RBC Hgb Hct MCV MCH MCHC RDW Plt Count Neut % (Auto) Lymph % (Auto) [place] % (Auto) Eos % (Auto) Baso % (Auto) Neut # (Auto) Lymph # (Auto) [place] # (Auto) Eos # (Auto) Baso # (Auto) PT 13.6 H INR 1.2 D-Dimer Sodium Potassium Chloride Carbon Dioxide BUN Creatinine Estimated GFR BUN/Creatinine Ratio Glucose Hemoglobin A1c Lactate Calcium Phosphorus Magnesium 2.0 Total Bilirubin AST ALT Alkaline Phosphatase Total Creatine Kinase 39 CK-MB (CK-2) TNP CK-MB (CK-2) Rel Index TNP Troponin I < 0.012 NT-Pro-B Natriuret Pep 59 Total Protein Albumin Globulin Albumin/Globulin Ratio Lipase 133 Procalcitonin TSH Urine Color Urine Appearance Urine pH Ur Specific [place] Urine Protein Urine Glucose (UA) Urine Ketones Urine Occult Blood Urine Nitrate Urine Bilirubin Urine Urobilinogen Ur Leukocyte Esterase Urine RBC Urine WBC Ur Squamous Epith Cells Urine Bacteria Ur Culture Indicated? Ur Random Sodium Urine Creatinine SARS-CoV-2 (PCR) Negative Influenza A (RT-PCR) Flu a positive H Influenza B (RT-PCR) Flu b negative RSV (PCR) Negative 12/24/22 12/24/22 12/24/22 11:56 11:56 14:01 WBC RBC Hgb Hct MCV MCH MCHC RDW Plt Count Neut % (Auto) Lymph % (Auto) [place] % (Auto) Eos % (Auto) Baso % (Auto) Neut # (Auto) Lymph # (Auto) [place] # (Auto) Eos # (Auto) Baso # (Auto) PT INR D-Dimer Sodium 141 Potassium 2.8 L Chloride 112 H Carbon Dioxide 19 L BUN 34 H Creatinine 3.59 H Estimated GFR 13 L BUN/Creatinine Ratio 9.5 Glucose 94 Hemoglobin A1c Lactate Calcium 7.4 L Phosphorus Magnesium Total Bilirubin AST ALT Alkaline Phosphatase Total Creatine Kinase CK-MB (CK-2) CK-MB (CK-2) Rel Index Troponin I NT-Pro-B Natriuret Pep Total Protein Albumin Globulin Albumin/Globulin Ratio Lipase Procalcitonin TSH Urine Color Yellow Urine Appearance Clear Urine pH 6.5 Ur Specific [place] 1.015 Urine Protein 2+ H Urine Glucose (UA) 1+ H Urine Ketones Negative Urine Occult Blood 1+ H Urine Nitrate Negative Urine Bilirubin Negative Urine Urobilinogen 0.2 Ur Leukocyte Esterase Negative Urine RBC 0-1/hpf Urine WBC 0-1/hpf Ur Squamous Epith Cells 0-1 /hpf Urine Bacteria Occasional (0-1) Ur Culture Indicated? Cult not indicated Ur Random Sodium 17 L Urine Creatinine 108.9 SARS-CoV-2 (PCR) Influenza A (RT-PCR) Influenza B (RT-PCR) RSV (PCR) 12/24/22 12/24/22 12/25/22 14:01 14:01 06:00 WBC 8.9 RBC 3.20 L Hgb 9.3 L Hct 26.2 L MCV 81.7 MCH 28.9 MCHC 35.4 RDW 14.8 Plt Count 161 Neut % (Auto) 62.6 Lymph % (Auto) 22.9 L [place] % (Auto) 10.9 Eos % (Auto) 2.8 Baso % (Auto) 0.8 Neut # (Auto) 5600 Lymph # (Auto) 2000 [place] # (Auto) 1000 H Eos # (Auto) 200 Baso # (Auto) 100 PT INR D-Dimer Sodium 139 Potassium 2.8 L Chloride 112 H Carbon Dioxide 20 L BUN 35 H Creatinine 3.52 H Estimated GFR 14 L BUN/Creatinine Ratio 9.9 Glucose 94 Hemoglobin A1c Lactate 1.0 Calcium 7.4 L Phosphorus Magnesium Total Bilirubin AST ALT Alkaline Phosphatase Total Creatine Kinase CK-MB (CK-2) CK-MB (CK-2) Rel Index Troponin I NT-Pro-B Natriuret Pep Total Protein Albumin Globulin Albumin/Globulin Ratio Lipase Procalcitonin 0.12 TSH Urine Color Urine Appearance Urine pH Ur Specific [place] Urine Protein Urine Glucose (UA) Urine Ketones Urine Occult Blood Urine Nitrate Urine Bilirubin Urine Urobilinogen Ur Leukocyte Esterase Urine RBC Urine WBC Ur Squamous Epith Cells Urine Bacteria Ur Culture Indicated? Ur Random Sodium Urine Creatinine SARS-CoV-2 (PCR) Influenza A (RT-PCR) Influenza B (RT-PCR) RSV (PCR) 12/25/22 12/25/22 12/25/22 06:00 06:00 06:00 WBC RBC Hgb Hct MCV MCH MCHC RDW Plt Count Neut % (Auto) Lymph % (Auto) [place] % (Auto) Eos % (Auto) Baso % (Auto) Neut # (Auto) Lymph # (Auto) [place] # (Auto) Eos # (Auto) Baso # (Auto) PT INR D-Dimer Sodium 140 Potassium 2.8 L Chloride 115 H Carbon Dioxide 17 L BUN 28 H Creatinine 3.29 H Estimated GFR 15 L BUN/Creatinine Ratio 8.5 Glucose 101 Hemoglobin A1c Cancelled Lactate Calcium 7.7 L Phosphorus 3.0 Magnesium 1.5 L Total Bilirubin AST ALT Alkaline Phosphatase Total Creatine Kinase CK-MB (CK-2) CK-MB (CK-2) Rel Index Troponin I NT-Pro-B Natriuret Pep Total Protein Albumin Globulin Albumin/Globulin Ratio Lipase Procalcitonin TSH 0.78 Urine Color Urine Appearance Urine pH Ur Specific [place] Urine Protein Urine Glucose (UA) Urine Ketones Urine Occult Blood Urine Nitrate Urine Bilirubin Urine Urobilinogen Ur Leukocyte Esterase Urine RBC Urine WBC Ur Squamous Epith Cells Urine Bacteria Ur Culture Indicated? Ur Random Sodium Urine Creatinine SARS-CoV-2 (PCR) Influenza A (RT-PCR) Influenza B (RT-PCR) RSV (PCR) PFSH Medical History Depression Essential hypertension Surgical History H/O section History of total right knee replacement (TKR) Family History Mother Diverticular disease Father CVA (cerebral vascular accident) C. difficile colitis Brother Hyperlipidemia Social History household members: spouse Smoking Status: Never smoker alcohol intake: current Assessment & Plan Assessment & Plan narrative: 1. AYAAN, secondary to ATN - likely severe dehydration from influenza leading to ATN - creatinine of 4 improved to 3.5 with initial fluids - continue IV fluids - renal ultrasound unremarkable and without obstruction. 2. Influenza A - no indication of bacterial infection currently - patient does not wish for tamiflu at this time, also developed symptoms about 5 days prior to admission, benefit minimal and risks given her AYAAN definitely outweight benefits. - symptom relief with tylenol for fever, cough medication or pain medications as needed. 3. Hypokalemia, acute - secondary to severe dehydation - continue fluids, 40 po potassium daily and watch closely for overcorrection - continue telemetry after irregularities noted on telemetry in the ER for 24 hours or until potassium improved. EKG with sinus bradycardia. 4. Elevated D- dimer - likely in setting of acute infection. Patient is currently without chest pain or shortness of breath and lab value is non-specific. If patient is tachycardic, or has worsening respiratory status can consider CTA. 5. History of HTN - previously on triamterine-HCTZ, but patient reports no longer taking after dietary changes and weight loss recently. - will likely dc BP med on discharge as she has been normotensive/hypotensive while admitted 6. History of diverticulitis - patient did not obtain colonoscopy as previously recommended after prior admission for diverticulitis. Patient was encouraged to seek referral as an outpatient with PCP after discharge. Code: Full, surrogate is patient's spouse DVT: HSQ BID Dispo: Home likely in 2 days awaiting return of renal function and improvement in potassium levels. COVID-19 COVID-19 status: Negative Quality VTE Deep Vein Thrombosis/Pulmonary Embolism Present on Admission: No
[2022-12-25] MEDS: POTASSIUM CHLORIDE 20 MEQ TAB 40 MEQ PO ×2 (08:29→18:30)
[2022-12-25] MEDS: MAGNESIUM SULFATE 4 GM/100 ML PIGGYBACK IV (08:29)
[2022-12-25] MEDS: HEPARIN 5,000 UNIT/ML VIAL 5000 UNIT SUBCUT ×2 (08:30→21:01)
--- NOTE | 2022-12-25 14:16 | CM.DANOTE ---
Discharge Planning/Care Management CM Discharge Assessment Start: 12/25/22 14:03 Freq: Status: Active Protocol: Document 12/25/22 14:03 LEONELA (Rec: 12/25/22 14:16 LEONELA [id number]) Discharge Planning Assessment Assigned Director Medical Writing ALYSSA Oneill DPOA/Assigned Designee Name Sylvester Cardenas, spouse Contact Information [phone] Advance Directives? No History Provided By Patient,Medical Record Prior Living Arrangements House Household Members spouse Type of transporation used prior to Drives own vehicle admit Independent with ADL's Yes Is patient alert and oriented? Yes Barriers to Discharge No Comment Patient is a 67 yo female who arrived to the ER complaining of cough/dizziness/syncopal episode and found to be Flu A + with AYAAN sec to ATN, admitted for further management PCP Poonam Quintana Payer: [employer]/ [employer] Placed call into patient's room r/t droplet precautions and introduced self and role. Patient explains she lives w/ spouse on [address] and is indp and active at baseline Patient denies needs from this [employer] and states appreciation for the call Anticipate return home upon medical discharge w/ recommendation for close outpatient f/u. Patient will likely not be homebound upon DC and will therefore not need HH, r/o need closer to DC LEONELA Discharge Plan Home Transportation Arrangement Spouse Referrals Initiated None needed
--- NOTE | 2022-12-25 16:29 | PC.NURSE ---
Patient is A&OX4. VSS, afebrile but with x1 event of chills with shakes. She is medicated with tylenol PRN with good effect. She has poor po intake but drinking broth, hot chocolate, water and orange juice. At 1614 and 1645 this afternoon patient had 9 beat episode of asymptomatic VTACH. MD notified and stat BMP and Magnesium ordered.
[2022-12-25 17:11] LABS: BUN Creatinine Ratio 7.7 (6-22); Blood Urea Nitrogen 25 mg/dL (7-17); Calcium 7.9 mg/dL (8.4-10.2); Carbon Dioxide 20 mmol/L (22-32); Chloride 113 mmol/L (98-107); Estimated Glomerular Filt Rate 15 mL/min (>60); Glucose 103 mg/dL (80-110); HEMOLYSIS < 15 (0-50); Magnesium 2.3 mg/dL (1.6-2.3); Potassium 2.9 mmol/L (3.4-5.1); Sodium 140 mmol/L (137-145)
[2022-12-25] MEDS: POTASSIUM CHLORIDE IN WATER 10 MEQ/100 ML PIGGYBACK 100 MEQ IV ×3 (18:31→23:11)
[2022-12-25 21:12] LABS: Labcorp Hemoglobin (Hb) A1c 6.1 % (4.8-5.6)
[2022-12-26] VITALS (9 sets, daily range): BP systolic 92–134; BP diastolic 51–70; PULSE 54–61; RESP 16–18; TEMP 36.4–37.2; O2SAT 95–100
[2022-12-26] MEDS: POTASSIUM CHLORIDE IN WATER 10 MEQ/100 ML PIGGYBACK 100 MEQ IV (01:10)
--- NOTE | 2022-12-26 07:35 | PM.PN.1 ---
Subjective Subjective Interval history: Cr down to 3 today and potassium improved to 3.4. Patient still feeling fatigued and has lack of appetite. Exam Vital Signs (past 8 hours): - 12/26/22 00:00 12/26/22 00:00 12/26/22 04:00 Temperature 98.5 F Pulse Rate 60 Respiratory Rate 18 Blood Pressure 92/51 L Pulse Oximetry 95 97 98 Oxygen Delivery Method Room Air Room Air Oxygen Flow Rate 0 12/26/22 04:00 Temperature 98.9 F Pulse Rate 60 Respiratory Rate 18 Blood Pressure 134/69 Pulse Oximetry 99 Oxygen Delivery Method Oxygen Flow Rate 0 Oxygen Delivery Method Room Air Oxygen Flow Rate 0 Narrative Exam Narrative: General:? Pleasant female, NAD. HEENT:? Normocephalic, atraumatic, extraocular muscles intact, oral pharynx is clear and mucous membranes are moist. Neck: supple and symmetric, trachea is midline, no cervical adenopathy. Chest:? Normal AP diameter and contour without kyphoscoliosis, no tachypnea, equal chest rise bilaterally. Lungs:? CTA b/l no wheezing rhonchi or rales. Cardio:?RRR no m/r/g. Abdomen: S NT ND. Musculoskeletal:? Muscle strength and tone are equal within normal limits, no deformity. Extremities: No edema or joint effusions. No cyanosis or clubbing. Skin:? Pale,? Warm to touch,dry and intact without rashes, ulcerations or petechiae.? Neuro:? Alert and orientated x3,? sensation to touch intact in all extremities, no gross deficits noted of cranial nerves. Psych:? Patient has a well-kept appearance, appropriate affect, mental status attitude thought context and judgment are appropriate for age. Objective Labs 12/26/22 08:13 12/26/22 08:13 Labs: Laboratory Results - last 24 hr 12/25/22 12/25/22 12/25/22 06:00 16:22 16:22 Sodium 140 Potassium 2.9 L Chloride 113 H Carbon Dioxide 20 L BUN 25 H Creatinine 3.23 H Estimated GFR 15 L BUN/Creatinine Ratio 7.7 Glucose 103 Hgb A1c (Ref Lab) 6.1 H Calcium 7.9 L Magnesium 2.3 PFSH Medical History Depression Essential hypertension Surgical History H/O section History of total right knee replacement (TKR) Family History Mother Diverticular disease Father CVA (cerebral vascular accident) C. difficile colitis Brother Hyperlipidemia Social History household members: spouse Smoking Status: Never smoker alcohol intake: current Assessment & Plan Assessment & Plan narrative: 1. AYAAN, secondary to ATN, improving - likely severe dehydration from influenza leading to ATN - creatinine of 4 on admission, now downtrending to 3 - patient having excess UO, likely post-ATN diuresis - continue IV fluids - renal ultrasound unremarkable and without obstruction. - spoke with nephrology who said can dc home with f/u labs if tolerating good fluid po intake and making urine 2. Influenza A - no indication of bacterial infection currently - patient does not wish for tamiflu at this time, also developed symptoms about 5 days prior to admission, benefit minimal and risks given her AYAAN definitely outweight benefits. - symptom relief with tylenol for fever, cough medication or pain medications as needed. 3. Hypokalemia, acute - secondary to severe dehydation - continue fluids, 40 po potassium daily and watch closely for overcorrection - continue telemetry after irregularities noted on telemetry in the ER for 24 hours or until potassium improved. EKG with sinus bradycardia. 4. Elevated D- dimer - likely in setting of acute infection. Patient is currently without chest pain or shortness of breath and lab value is non-specific. If patient is tachycardic, or has worsening respiratory status can consider CTA. 5. History of HTN - previously on triamterine-HCTZ, but patient reports no longer taking after dietary changes and weight loss recently. - will likely dc BP med on discharge as she has been normotensive/hypotensive while admitted 6. History of diverticulitis - patient did not obtain colonoscopy as previously recommended after prior admission for diverticulitis. Patient was encouraged to seek referral as an outpatient with PCP after discharge. Code: Full, surrogate is patient's spouse DVT: HSQ BID Dispo: Home on 12/27. COVID-19 COVID-19 status: Negative Quality VTE Deep Vein Thrombosis/Pulmonary Embolism Present on Admission: No
[2022-12-26] MEDS: HEPARIN 5,000 UNIT/ML VIAL 5000 UNIT SUBCUT (08:35)
[2022-12-26 08:47] LABS: Add Manual Diff / Slide Review NO; Basophils Absolute Auto 100 /uL (0-100); Basophils Percent Auto 0.8 % (0-2); Eosinophils Absolute Auto 300 /uL (0-450); Eosinophils Percent Auto 3.5 % (2-4); Hematocrit 27.9 % (36-46); Hemoglobin 9.7 g/dL (12.0-16.0); Lymphocytes Absolute Auto 2200 /uL (1100-4500); Lymphocytes Percent Auto 24.5 % (25-40); Mean Corpuscular HGB Conc 34.8 % (30-36); Mean Corpuscular Volume 83.4 fL (80-100); Monocytes Absolute Auto 900 /uL (0-900); Monocytes Percent Auto 10.5 % (3-14); Neutrophils Absolute Auto 5400 /uL (1500-7000); Neutrophils Percent Auto 60.7 % (50-75); Platelet Count 171 X10^3/uL (150-400); Red Blood Cell Count 3.35 X10^6/uL (4.0-5.2); Red Cell Distribution Width 14.7 % (11.6-14.8); White Blood Cell Count 8.9 X10^3/uL (4.5-11.0)
[2022-12-26 08:53] LABS: BUN Creatinine Ratio 6.6 (6-22); Blood Urea Nitrogen 20 mg/dL (7-17); Carbon Dioxide 18 mmol/L (22-32); Chloride 113 mmol/L (98-107); Estimated Glomerular Filt Rate 16 mL/min (>60); Glucose 90 mg/dL (80-110); HEMOLYSIS < 15 (0-50); Phosphorous 2.1 mg/dL (2.8-4.1); Potassium 3.4 mmol/L (3.4-5.1); Sodium 138 mmol/L (137-145)
[2022-12-26] MEDS: ACETAMINOPHEN 325 MG TABLET 650 MG PO (17:44)
--- NOTE | 2022-12-26 23:34 | PC.NURSE ---
Patient is alert and oriented. Breath sounds CTA but diminished in left LL and coarse in right UL. RA sat is 98% and denies SOB at rest or with exertion. Does have intermittent hacking cough and states she has expectorated small amounts mucus with green tinge. HRR. Denies nausea. BT present and had BM earlier today. Is voiding on toilet and denies dysuria but states she has frequency related to receiving IVF. Is independent with mobility and steady on feet. Refused her heparin injection tonight as well as use of SCD's as states she is up frequently and doesn't feel a need for either one. Complains of feeling fatigued but denies weakness. Is on droplet precautions for influenza A. Fall risk score is moderate; alarm is not in use. Patient agrees to call for assist if feeling dizzy or lightheaded.
[2022-12-27] MEDS: LACTATED RINGERS 1,000 ML 100 ML IV (00:15)
[2022-12-27 03:00] VITALS: BP 130/77; PULSE 58; RESP 17; TEMP 36.5; O2SAT 97
[2022-12-27 06:58] LABS: Add Manual Diff / Slide Review NO; Basophils Absolute Auto 0 /uL (0-100); Basophils Percent Auto 0.6 % (0-2); Eosinophils Absolute Auto 500 /uL (0-450); Eosinophils Percent Auto 6.1 % (2-4); Hematocrit 27.6 % (36-46); Hemoglobin 9.6 g/dL (12.0-16.0); Lymphocytes Absolute Auto 2700 /uL (1100-4500); Lymphocytes Percent Auto 35.6 % (25-40); Mean Corpuscular HGB Conc 34.9 % (30-36); Monocytes Absolute Auto 900 /uL (0-900); Monocytes Percent Auto 11.8 % (3-14); Neutrophils Absolute Auto 3500 /uL (1500-7000); Neutrophils Percent Auto 45.9 % (50-75); Platelet Count 169 X10^3/uL (150-400); Red Blood Cell Count 3.33 X10^6/uL (4.0-5.2); Red Cell Distribution Width 14.9 % (11.6-14.8); White Blood Cell Count 7.6 X10^3/uL (4.5-11.0)
[2022-12-27 07:12] LABS: BUN Creatinine Ratio 6.8 (6-22); Blood Urea Nitrogen 20 mg/dL (7-17); Carbon Dioxide 19 mmol/L (22-32); Chloride 114 mmol/L (98-107); Estimated Glomerular Filt Rate 17 mL/min (>60); Glucose 87 mg/dL (80-110); HEMOLYSIS < 15 (0-50); Magnesium 1.7 mg/dL (1.6-2.3); Phosphorous 2.7 mg/dL (2.8-4.1); Potassium 3.1 mmol/L (3.4-5.1); Sodium 140 mmol/L (137-145)
--- NOTE | 2022-12-27 07:59 | PM.DS.1 ---
History of Present Illness History of Present Illness Date Patient Seen: 12/24/22 Time Patient Seen: 17:30 Chief complaint: lighthead/cough/dizzy/fainted on plane Narrative: This is a 67 year old female with PMH of HTN, depression but not on any current medications who presented to the emergency room with dizziness, fatigue, and fever. Patient went to [place] to visit her son. She arrived in [place] last Thursday. While there, on Thursday night she began to feel ill. She has had cough and nasal congestion / watery eyes consistent with allergies for the past couple of weeks but became very lethargic, weak with muscle aches and fever on Thursday. She was dizzy when standing and when she flew home yesterday she fainted on the plane. She was evaluated and given oxygen by an ER nurse but was let go from the airport home. states she passed out for around 30 seconds. She continued to feel weak, and came to the emergency room today when not feeling improved. She denies nausea or vomiting, she has been a bit constipated but denies diarrhea. She has some rib pain from coughing, but no chest pain, shortness of breath, or dyspnea on exertion. Her primary complaint now is fatigue. She is feeling a bit better after fluids in the emergency room. In the emergency room, vitals were unremarkable. Laboratory evaluation was notable for an initial creatinine of 4, with K of 2.5. Flu A was positive. CXR was unremarkable as was renal ultrasound. Repeat creatinine after a few L of fluid was 3.52 with improvement in potassium to 2.8. She had a few irregular heart beats on telemetry per the ER provider and was given some IV potassium. She was admitted for further management of AYAAN. Discharge Providers Provider Date of admission: 12/24/22 15:41 Discharge Date: 12/27/22 Primary care physician: JENNIFER Odell Discharge provider: Carlo Schwartz, DO Summary Hospital Course Discharge Diagnosis: 1. AYAAN, secondary to ATN, improving ?- likely severe dehydration from influenza leading to ATN ?- creatinine of 4 on admission, now downtrending to 3 ?- patient having excess UO, likely post-ATN diuresis ?- continue IV fluids ?- renal ultrasound unremarkable and without obstruction. ?- spoke with nephrology who said can dc home with f/u labs if tolerating good fluid po intake and making urine and patient doing both 2. Influenza A ?- no indication of bacterial infection currently ?- patient does not wish for tamiflu at this time, also developed symptoms about 5 days prior to admission, benefit minimal and risks given her AYAAN definitely outweight benefits. ?- symptom relief with tylenol for fever, cough medication or pain medications as needed. 3. Hypokalemia, acute ?- secondary to severe dehydation ?- continue fluids, 40 po potassium daily and watch closely for overcorrection ?- continue telemetry after irregularities noted on telemetry in the ER for 24 hours or until potassium improved. EKG with sinus bradycardia. 4. Elevated D- dimer ?- likely in setting of acute infection. Patient is currently without chest pain or shortness of breath and lab value is non-specific. If patient is tachycardic, or has worsening respiratory status can consider CTA. 5. History of HTN ?- previously on triamterine-HCTZ, but patient reports no longer taking after dietary changes and weight loss recently. ?- will likely dc BP med on discharge as she has been normotensive/hypotensive while admitted 6. History of diverticulitis ?- patient did not obtain colonoscopy as previously recommended after prior admission for diverticulitis. Patient was encouraged to seek referral as an outpatient with PCP after discharge. Hospital Course: Admitted for flu and found to have AYAAN/ATN with Cr of 4 and K of 2.8. Given IVF and Cr slowly downtrended to 2.9 by discharge. Potassium improved with supplementation. Etiology likely due to dehydration from lack of po intake from flu while taking BP meds. Patient will stop BP med on discharge, start 20mEq potassium supplement daily on discharge and f/u with PCP with labs next week. Time Spent with Patient Time spent: Greater than 30 minutes Exam Vital Signs (past 8 hours): - 12/27/22 03:00 12/27/22 03:00 Temperature 97.7 F Pulse Rate 58 L Respiratory Rate 17 Blood Pressure 130/77 Pulse Oximetry 97 97 Oxygen Delivery Method Room Air Oxygen Flow Rate 0 0 Oxygen Delivery Method Room Air Oxygen Flow Rate 0 Narrative Exam Narrative: General:? Pleasant female, NAD. HEENT:? Normocephalic, atraumatic, extraocular muscles intact, oral pharynx is clear and mucous membranes are moist. Neck: supple and symmetric, trachea is midline, no cervical adenopathy. Chest:? Normal AP diameter and contour without kyphoscoliosis, no tachypnea, equal chest rise bilaterally. Lungs:? CTA b/l no wheezing rhonchi or rales. Cardio:?RRR no m/r/g. Abdomen: S NT ND. Musculoskeletal:? Muscle strength and tone are equal within normal limits, no deformity. Extremities: No edema or joint effusions. No cyanosis or clubbing. Skin:? Pale,? Warm to touch,dry and intact without rashes, ulcerations or petechiae.? Neuro:? Alert and orientated x3,? sensation to touch intact in all extremities, no gross deficits noted of cranial nerves. Psych:? Patient has a well-kept appearance, appropriate affect, mental status attitude thought context and judgment are appropriate for age. Objective Labs 12/27/22 05:55 12/27/22 05:55 Labs: Laboratory Results - last 24 hr 12/26/22 12/26/22 12/27/22 08:13 08:13 05:55 WBC 8.9 7.6 RBC 3.35 L 3.33 L Hgb 9.7 L 9.6 L Hct 27.9 L 27.6 L MCV 83.4 83.0 MCH 29.0 29.0 MCHC 34.8 34.9 RDW 14.7 14.9 H Plt Count 171 169 Neut % (Auto) 60.7 45.9 L Lymph % (Auto) 24.5 L 35.6 [place] % (Auto) 10.5 11.8 Eos % (Auto) 3.5 6.1 H Baso % (Auto) 0.8 0.6 Neut # (Auto) 5400 3500 Lymph # (Auto) 2200 2700 [place] # (Auto) 900 900 Eos # (Auto) 300 500 H Baso # (Auto) 100 0 Sodium 138 Potassium 3.4 Chloride 113 H Carbon Dioxide 18 L BUN 20 H Creatinine 3.04 H Estimated GFR 16 L BUN/Creatinine Ratio 6.6 Glucose 90 Calcium 8.0 L Phosphorus 2.1 L Magnesium 2.0 12/27/22 05:55 WBC RBC Hgb Hct MCV MCH MCHC RDW Plt Count Neut % (Auto) Lymph % (Auto) [place] % (Auto) Eos % (Auto) Baso % (Auto) Neut # (Auto) Lymph # (Auto) [place] # (Auto) Eos # (Auto) Baso # (Auto) Sodium 140 Potassium 3.1 L Chloride 114 H Carbon Dioxide 19 L BUN 20 H Creatinine 2.92 H Estimated GFR 17 L BUN/Creatinine Ratio 6.8 Glucose 87 Calcium 8.0 L Phosphorus 2.7 L Magnesium 1.7 PFSH Medical History Depression Essential hypertension Surgical History H/O section History of total right knee replacement (TKR) Family History Mother Diverticular disease Father CVA (cerebral vascular accident) C. difficile colitis Brother Hyperlipidemia Social History household members: spouse Smoking Status: Never smoker alcohol intake: current Discharge Plan Discharge Plan Patient Disposition: Home Provider Discharge Comment: You were admitted for kidney injury related to dehydration from the flu. Your potassium levels were also very low. Your kidney function improved slowly with IV fluids and we gave you lots of potassium supplements. You will go home on a daily potassium supplement and I've printed you an info sheet on foods that are high in potassium for you to try to eat. Please call your PCP thursday and ask for an appointment plus a BMP to check potassium and kidney function a couple of days before your appt to make sure everything is still going the right direction. Discharge orders & Medications Prescriptions: New potassium chloride 20 mEq tablet extended release 20 meq PO DAILY Qty: 30 0RF Continued alprazolam 0.5 mg tablet 0.5 mg PO BEDTIME Patient Comments: TAKE ONE(1) TABLET ONE(1) HOUR PRIOR TO DENTAL APPOINTMENT trazodone 50 mg tablet 50 mg PO BEDTIME Follow up/Referrals: Poonam Quintana ARNP [Primary Care Provider] - 1 Week Visit Report/Discharge Packet Instructions: DI for Influenza -- Adult, DI for Hypokalemia, High-Potassium Diet, How to Avoid Taking NSAID-Containing Products, DI for Acute Kidney Injury Stand Alone Forms: Patient Portal/API, Stroke Signs & Symptoms Discharge Data Primary Care Provider: Poonam Quintana Discharges patient from system. Discharge Date/Time: 12/27/22 11:15 Quality VTE Deep Vein Thrombosis/Pulmonary Embolism Present on Admission: No
--- NOTE | 2022-12-27 08:08 | CM.DPC ---
DCP Discharge Home Per MD, pt is medically stable to d/c home today and no identified barriers to discharge. Per RN, pt has been independent in room and steady on feet and no concerns noted. Plan: Patient to d/c back to [place] via spouse POV and outpt f/u and no further SW needs at this time. ALYSSA Ervin
[2022-12-27] MEDS: POTASSIUM CHLORIDE 20 MEQ TAB 40 MEQ PO (08:18)
[2022-12-27 08:25] VITALS: BP 114/67; PULSE 54; RESP 16; TEMP 36.8; O2SAT 94
--- NOTE | 2022-12-27 13:45 | PC.NURSE ---
Discharge: Pt feels ready to d/c to home. MD here and gave d/c instructions. Priority load given. Reviewed discharge packet. Rx has been esent. Questions answered. Denies any problems. D/c to home via auto w/spouse.
== END 2022-12-27 11:15 | disposition home or self-care (01) | DRG 193 ==
LOC: ED 11:12 → AC 15:42
PROVIDERS: Student in an Organized Health Care Education/Training Program; Admitting Provider Internal Medicine; Emergency Provider Emergency Medicine; PCP Nurse Practitioner Family; Referring Provider Emergency Medicine; Visit Provider Internal Medicine
DX: J10.1 Influenza due to other identified influenza virus with other respiratory manifestations (principal); N17.0 Acute kidney failure with tubular necrosis; E86.0 Dehydration; E87.6 Hypokalemia; F32.A Depression, unspecified; Z86.79 Personal history of other diseases of the circulatory system; Z20.822 Contact with and (suspected) exposure to COVID-19
CPT/HCPCS: 0241U; 36415; 51701; 71046; 76770; 80048; 80053; 81001; 81003; 82550; 82570; 83036; 83605; 83690; 83735; 83880; 84100; 84145; 84300; 84443; 84484; 85025; 85379; 85610; 87040; 93005; 96360; 96361; 96372; 99284; 99291; J0131; J1644; J1650; J3475